=== PATIENT | female | born 1935 | race Caucasian/White ===

== ENCOUNTER 2018-10-02 13:02 | Inpatient (IN) | payer MEDICARE, MEDICAID ==
[~2018-10-02] VITALS: Ht 134.6 cm; Wt 62.3 kg
--- NOTE | ~2018-10-02 | DS ---
[place], [place] DISCHARGE SUMMARY [id number] #: [id number] ROOM: 310 DOCTOR: DARVIN MELARA MD BIRTHDATE: [birth year] DOS: 10/13/2018 CHIEF COMPLAINT: "Oh I do not think I slept well at all last night." HISTORY OF PRESENT ILLNESS: This is an 83-year-old white female known to me from her stay at [facility]. The patient has become increasingly agitated and aggressive while at [facility]. She has been very paranoid and believes that people are talking about her and plotting against her. She has been physically aggressive when staff tried to redirect her. This behavior is in vidales contrast to her normal behavior. Normally, she has been very compliant and pleasant, but now she is putting herself and others at significant risk of harm. She is admitted now to rule out organic factors, to stabilize on medication, to engage in individual and samson milieu activity, returning back to [facility] when psychiatrically stable. SUMMARY OF THE VISIT: The patient was admitted to the unit where her Effexor was tapered and discontinued and Remeron was maintained moving it from 7.5 to 15 mg at bedtime to be more effective as an antidepressant. Her Depakote was maintained initially at 250 mg 3 times daily; however, she was low therapeutic at 52.4, so the dose was increased to 500 mg 3 times a day. Serum ammonia level upon admission was mildly elevated at 40, so lactulose 20 grams b.i.d. was started to lower the ammonia level. I did initially add Abilify; however, this did not seem to be very effective, so the Abilify was ultimately discontinued in lieu of Seroquel. The dose was increased and then subsequently decreased and stabilized at 25 mg twice daily given in later day dosing pattern. The patient did continue to have periods of excessive and inappropriate emotionality and was diagnosed then with pseudobulbar affect and Nuedexta 20-10 was started first at 1 tablet a day and then very quickly to 1 tablet every 12 hours with excellent results. As the patient improved, she returned back to her baseline. She was bright, pleasant and cheerful. She was very engaging in conversation. She was no longer verbally or physically aggressive. She tolerated the medication regimen well and there was no sedation, somnolence, extrapyramidal symptoms or tardive dyskinesia. The patient was well enough to return back to [facility]. MENTAL STATUS AT DISCHARGE: The patient is alert and oriented to person, place, but not necessarily time. Mood is strongly trending towards euthymia. Affect is much more appropriate. There was no hypomania or jayda. There were no gross psychotic symptoms. Short-term memory had gaps, otherwise she was intact. FINAL DIAGNOSES: Intermittent explosive disorder; major depression, recurrent; Alzheimer's dementia and pseudobulbar affect. DISPOSITION: All of her prescriptions have been printed and will be sent with her. At the time of discharge, she was psychiatrically stable. There were no acute medical issues. I will be the treating psychiatrist upon her readmission to the [facility]. [place], [place] DISCHARGE SUMMARY NAME: MICHAEL BERKOWITZ UNIT #: [id number] ROOM: 310 DOCTOR: DARVIN MELARA MD BIRTHDATE: [birth year] DARVIN MELARA MD CM:DISCHARG [id number] DARVIN MELARA MD 10/13/18 113 interface
--- NOTE | ~2018-10-02 | PR ---
[place], [place] PROGRESS NOTE NAME: MICHAEL BERKOWITZ UNIT #: [id number] ROOM: 310 DOCTOR: DARVIN MELARA MD BIRTHDATE: [birth year] DOS: 10/06/2018 CHIEF COMPLAINT: "Good morning." SUMMARY OF THE VISIT: The patient was interviewed as she was resting in a Dalia chair. She awoke with some prompting, said good morning and closed her eyes again. Nurses report that she had a good morning for the most part. She did sundown horribly again last evening and began to be exit seeking and un-redirectable. She ultimately required p.r.n. intervention with good results without side effects. MENTAL STATUS: She is alert and oriented to person, possibly place, although doubtful, not to time. Mood this morning is fairly euthymic. There is no anxiety or agitation noted. There is sedation and somnolence noted. Memory remains very poor. PLAN: At this point, given the amount of mood lability that she is experiencing, I will discontinue the Abilify due to ineffectiveness and start Seroquel 25 mg 3 times a day. We will support and monitor, engage in individual and samson milieu activity, returning to the least restrictive environment when psychiatrically stable. DARVIN MELARA MD CM:PNTRANS [id number] DARVIN MELARA MD 10/07/18 0420 interface
--- NOTE | ~2018-10-02 | PR ---
[place], [place] PROGRESS NOTE NAME: MICHAEL BERKOWITZ UNIT #: [id number] ROOM: 310 DOCTOR: DARVIN MELARA MD BIRTHDATE: [birth year] DOS: 10/04/2018 CHIEF COMPLAINT: "Oh, I will take some help getting up." SUMMARY OF THE VISIT: The patient was interviewed as she was resting quietly in bed. She engaged readily in conversation, reporting she would be fine if she got up and had breakfast. She was pleasant and cooperative, but confused. Nurses report that yesterday evening as afternoon turned into evening, she began to sundown horribly and became very agitated, exit seeking and combative. There was a great deal of paranoia and it was very hard to redirect her. She ultimately required p.r.n. intervention with excellent results without side effects. MENTAL STATUS: She is alert and oriented to person, possibly place, not to time. Mood this morning was fairly euthymic. Affect appropriate. Response is short and simple, at times inappropriate. There is no hypomania, jayda or psychosis this morning. PLAN: I will go ahead and increase and change the time of her Abilify moving the dose from 10 to 15 mg and giving it to her at 1700 hours to attempt to offset her sundowning. We will engage in individual and samson milieu activity, returning then to the least restrictive environment when psychiatrically stable. DARVIN MELARA MD CM:PNTRANS [phone] DARVIN MELARA MD 10/04/18 1406 interface
--- NOTE | ~2018-10-02 | PR ---
[place], [place] PROGRESS NOTE NAME: MICHAEL BERKOWITZ UNIT #: [id number] ROOM: 310 DOCTOR: DARVIN MELARA MD BIRTHDATE: [birth year] DOS: 10/12/2018 CHIEF COMPLAINT: "Oh good morning there, how are you today?" SUMMARY OF THE VISIT: The patient was interviewed in the dining area. She had already completed her breakfast. She was bright and alert and engaged readily in conversation. She carried on a reasonable conversation that was somewhat confused at times, but she also exhibited some spontaneity and actually engaged in conversation that was mutually beneficial. The patient did not exhibit any sedation or somnolence. There were no extrapyramidal symptoms or tardive dyskinesia. She was not yelling out. She was not exhibiting any mood lability. MENTAL STATUS: She is alert and oriented with time gaps. Mood does seem to be definitely trending towards euthymia. Affect is much more appropriate. There is no jayda, hypomania or psychosis. Short term memory is definitely impaired. PLAN: I will maintain her current psychotropic regimen given the benefit that we are now seeing. Continue to engage in individual and samson milieu activity, returning then to [facility] when psychiatrically stable. DARVIN MELARA MD CM:PNTRANS [id number] DARVIN MELARA MD 10/12/18 1347 interface
--- NOTE | ~2018-10-02 | PR ---
[place], [place] PROGRESS NOTE NAME: MICHAEL BERKOWITZ UNIT #: [id number] ROOM: 310 DOCTOR: DARVIN MELARA MD BIRTHDATE: [birth year] DOS: 10/08/2018 CHIEF COMPLAINT: "Morning." SUMMARY OF THE VISIT: The patient was interviewed as she was resting in bed. She was sleeping at first, but as I approached and called her name out loudly, she opened her eyes and voiced she did not want to be disturbed. She was quiet for the most part. Her oral mucosa looked extremely dry and nurses report she has not been eating or drinking now for several meals. She was not yelling out. She did yell out last evening and required p.r.n. intervention. MENTAL STATUS: It is limited due to her somnolence, but she was pleasant. There was no agitation or aggression. There was no hypomania, jayda or psychosis. PLAN: I will renew her p.r.n. Ativan should she require intervention. I will plan to increase her Nuedexta 20-10 to b.i.d. on 10/09/2018. I will check a CMP and CBC with diff to just screen medically. I defer to the hospitalist for further treatment. DARVIN MELARA MD CM:PNTRANS [id number] DARVIN MELARA MD 10/08/18 1427 interface
--- NOTE | ~2018-10-02 | WRIGHTHP ---
[place], [place] PATIENT HISTORY AND PHYSICAL EXAM NAME: MICHAEL BERKOWITZ UNIT #: [id number] ROOM: 310 DOCTOR: DARVIN MELARA MD BIRTHDATE: [birth year] DOS: 10/03/2018 CHIEF COMPLAINT: "Oh, I do not think I slept well at all last night." HISTORY OF PRESENT ILLNESS: This is an 83-year-old white female known to me from her stay of [facility]. The patient had been increasingly agitated and aggressive while at [facility]. She became increasingly paranoid, believing that people are talking about her and plotting against her. She has been physically aggressive at times with redirection. This behavior is in vidales contrast to her normal behavior. Attempts to adjust her medicines well at the long-term care facility have been unsuccessful and her behavior has spiraled out of control to the point where she is putting both herself and others at substantial risk of harm. She is admitted now to rule out organic factors to attempt to stabilize on medication, to engage in individual and samson milieu activities, returning to the least restrictive environment when psychiatrically stable. PAST MEDICAL HISTORY: Remarkable for hyperlipidemia, GERD, iron deficiency, diabetes and Alzheimer's dementia. SOCIAL HISTORY: The patient does not smoke cigarettes, use illicit drugs or drink alcohol. ALLERGIES: She lists allergies to PENICILLIN AND SULFA. STRENGTHS: Good verbal skills, supportive family. WEAKNESSES: Cognitive decline, poor coping skills. MENTAL STATUS: The patient is alert and oriented to person, possibly place, but not time. Mood this morning is somewhat depressed with anxious overtones. Nurses report the mood lability is quite prominent, especially in the evening hours. There is no overt auditory or visual hallucination. She was guarded and somewhat suspicious with me. Short term memory is poor and she processes information slowly. DIAGNOSES: Intermittent explosive disorder; major depression, recurrent and Alzheimer's dementia. DISPOSITION: At this point, I am going to simplify her regimen. I am going to discontinue her Effexor now after already discontinuing the Remeron. I do believe that there is more of a mood lability component here than there is depression. I will go ahead and maintain her Depakote at 250 mg 3 times daily. Her valproic acid level is low therapeutic at 52.4. Routine screening examinations revealed her to have a mildly elevated serum ammonia level of 40. I will order lactulose 20 grams b.i.d. For mood component stability, I will add Abilify 10 as this has enough antidepressant efficacy as well as mood stability properties to do both. I will maintain her Namenda and her Exelon patch. Engage in individual and samson milieu activity, returning then to the least restrictive environment when psychiatrically stable. [place], [place] PATIENT HISTORY AND PHYSICAL EXAM NAME: MICHAEL BERKOWITZ [place] UNIT #: [id number] ROOM: 310 DOCTOR: DARVIN MELARA MD BIRTHDATE: [birth year] DARVIN MELARA MD CM:HISPHYS:PATIENT HISTORY AND PHYSICAL EXAMINATION 3 7 DARVIN MELARA MD 10/03/18917 interface
--- NOTE | ~2018-10-02 | PR ---
[place], [place] PROGRESS NOTE NAME: MICHAEL BERKOWITZ UNIT #: [id number] ROOM: 310 DOCTOR: DARVIN MELARA MD BIRTHDATE: [birth year] DOS: 10/11/2018 INTERVAL NOTE CHIEF COMPLAINT: "Good morning." SUMMARY OF THE VISIT: The patient was interviewed as she was sitting in the dining area finishing her breakfast. She engaged readily in brief conversation, most of it short simple responses. She was not agitated, however, and was not yelling out, although nurses report, she continues to have episodes of extreme mood lability and yelling out, more redirectable, although of late. MENTAL STATUS: She is alert and oriented to self only. Mood does seem to be trending towards euthymia. Affect is more appropriate. There is no jayda or hypomania. No gross psychosis. Short-term memory remains problematic. PLAN: I will go ahead and increase her Depakote sprinkles to 500 mg 3 times daily attempting to bring the level between 60 and 80 to decrease her mood lability. Continue to engage in individual and samson milieu activities, returning to the least restrictive environment when psychiatrically stable. DARVIN MELARA MD CM:PNTRANS 1315 DARVIN MELARA MD 10/11/18 1316 interface
--- NOTE | ~2018-10-02 | PR ---
[place], [place] PROGRESS NOTE NAME: MICHAEL BERKOWITZ UNIT #: [id number] ROOM: 310 DOCTOR: DARVIN MELARA MD BIRTHDATE: [birth year] DOS: 10/07/2018 CHIEF COMPLAINT: The patient was somnolent. SUMMARY OF THE VISIT: The patient was attempted to be interviewed as she was resting in a Dalia chair in the dining area. She was very somnolent, this is because she was very agitated into the evening going into night and was yelling out "help me, help me" repeatedly. When staff did attempt to intervene to see what help she needed, she was not able to verbalize any needs. This seems to be more like a PDA variant. MENTAL STATUS: It was limited due to her overall level of somnolence. PLAN: I will add the diagnosis of pseudobulbar affect and start her on Nuedexta 20/10 one tablet daily to see if this will decrease some of the inappropriate excessive emotionality. We will monitor and support. DARVIN MELARA MD CM:PNTRANS [id number] DARVIN MELARA MD 10/07/18 1522 interface
--- NOTE | ~2018-10-02 | PR ---
[place], [place] PROGRESS NOTE NAME: MICHAEL BERKOWITZ UNIT #: [id number] ROOM: 310 DOCTOR: DARVIN MELARA MD BIRTHDATE: [birth year] DOS: 10/05/2018 INTERVAL NOTE CHIEF COMPLAINT: "I have had so many losses in my life." SUMMARY OF THE VISIT: The patient was interviewed as she was sitting in the dining area. She had already eaten her breakfast. She engaged readily in conversation and then initially talked about having many, many deaths in the family. She did almost well up with tears, but then quickly stated that this did not depress her because she just has to keep moving on. She did seem genuinely depressed and sad. MENTAL STATUS: She remains alert and oriented with significant time gaps. Nurses report, she does sundown frequently. She is alert and oriented to person, place, not time. Mood does seem to be very sad and depressed. Affect is flat, blunted, and constricted. There is no hypomania, jayda or psychosis. Short term memory is very poor. PLAN: I will go ahead and add Remeron 15 mg at bedtime. I may adjust the timing of the medicine to coincide when she sundowns so that we can head off some of her sundowning behavior. We will engage her in individual and samson milieu activity, returning to the least restrictive environment when psychiatrically stable. DARVIN MELARA MD CM:PNTRANS [phone] DARVIN MELARA MD 10/05/18 1025 interface
[~2018-10-02 13:02] MED LIST: MACRODANTIN100 M1 PO
[2018-10-02] MEDS ORDERED: EFFEXOR XR150 M1 PO (17:20)
[2018-10-02] MEDS ORDERED: PERCOCET 5-3251 EACH PO (17:22)
[2018-10-02] MEDS ORDERED: TYLENOL325 M2 PO (17:23)
[2018-10-02] MEDS ORDERED: LIPITOR10 MG PO (17:24)
[2018-10-02] MEDS ORDERED: DEPAKOTE SPRIN125 MG PO (17:27)
[2018-10-02] MEDS ORDERED: CRANBERRY450 M3 PO (17:27)
[2018-10-02] MEDS ORDERED: EXELON13.3 MG/21 TD (17:36)
[2018-10-02] MEDS ORDERED: DOCUSATE SODIU100 M2 PO (17:36)
[2018-10-02] MEDS ORDERED: ADULT TUSS100 MG/5 M PO (17:37)
[2018-10-02] MEDS ORDERED: FERROUS SULFAT324 M2 PO (17:39)
[2018-10-02] MEDS ORDERED: LEVEMIR100 UNIT/1 SQ (17:40)
[2018-10-02] MEDS ORDERED: METOPROLOL TAR100 M1 PO (17:41)
[2018-10-02] MEDS ORDERED: REMERON15 M2 PO (17:43)
[2018-10-02] MEDS ORDERED: MULTIPLE VITAM1 EAC1 PO (17:47)
[2018-10-02] MEDS ORDERED: NAMENDA10 MG PO (17:48)
[2018-10-02] MEDS ORDERED: NYSTATIN CREAM15 GM T (18:12)
[2018-10-02] MEDS ORDERED: OMEPRAZOLE D/R20 MG PO (18:13)
[2018-10-02] MEDS ORDERED: TRAD5TAB1 PO (18:14)
[2018-10-02] MEDS ORDERED: SENNA8.6 MG PO (18:14)
[2018-10-02] MEDS ORDERED: UTI-STAT L3875 MG/30 PO (18:17)
[2018-10-02] MEDS ORDERED: VESICARE5 MG PO (18:19)
[2018-10-02] MEDS ORDERED: VITAMIN D350000 UNIT PO (18:20)
[2018-10-02 20:00] VITALS: BP 156/69
--- NOTE | 2018-10-02 20:00 | NUR ---
MICHAEL BERKOWITZ a 83 year old F admitted via wheel chair from the ADMITTING as a voluntary admission. Arrived on unit at 1999. ALLERGIES: PCN AND SULFA. Vital signs are: [id number] 156/69. The client's POA gave verbal consent for the following forms with stated understanding: Authorization For The Release of Medical Information, Clothing List, Consent to Voluntary Admission and Hospitalization, Consent and Release Forms/Receipt of Rights, Acknowledgement of Advance Directive Information, Behavioral Health Consent Form, and Informed Consent of Medications. Admitted under the services of Dr. KELTON HENRY,[facility]. A search was conducted and hazardous articles were removed. Client was oriented to the unit. GERI ZAMORA
--- NOTE | 2018-10-02 20:10 | NUR ---
MESSAGE LEFT ON OLIVING MACHINE OPERATOR PHONE WITH UPDATE OF TIME OF ADMISSION AND AWARE PATIENT IS VOLUNTARY BY POA
--- NOTE | 2018-10-02 21:45 | NUR ---
Called and notified Aminata Agrawal,nursing porcelain enameling supervisor,regarding patient's wound on lt buttock that needs staged. She said she would come soon.
--- NOTE | 2018-10-02 21:50 | NUR ---
Dr. Burnett came to see patient and notified him that patient has wounds on rt arm and lt buttock. He said he would put in wound care orders.
--- NOTE | 2018-10-02 22:00 | NUR ---
Aminata Agrawal,nursing pit supervisor came and staged wound on lt buttock.
--- NOTE | 2018-10-02 23:45 | NUR ---
Still awaiting wound care orders from Dr. Burnett.
--- NOTE | 2018-10-03 01:18 | NUR ---
24 HR chart check completed.
--- NOTE | 2018-10-03 05:57 | NUR ---
Patient slept approx. 7 hours throughout shift.
[2018-10-03 06:45] LABS: ALBUMIN 2.7 gm/dl (3.1-4.5); ALKALINE PHOSPHATASE 79 U/L (45-117); BUN 37 mg/dl (7-24); CHLORIDE 105 mmol/L (98-107); CHOLESTEROL 125 mg/dL (<200); CREATININE 1.05 mg/dL (0.55-1.02); HDL CHOLESTEROL 38 mg/dl (40-60); LDL CHOLESTEROL 60 mg/dL (9-159); POTASSIUM 3.8 mmol/L (3.5-5.1); SGOT/AST 31 IU/L (3-35); SGPT/ALT 22 U/L (12-78); SODIUM 142 mmol/L (136-145); TOTAL PROTEIN 6.3 gm/dL (6.4-8.2); TRIGLYCERIDES 136 mg/dl (<150); VLDL CHOLESTEROL 27 mg/dL (6-40)
[2018-10-03 06:54] LABS: HEMOGLOBIN 11.2 g/dl (12.0-16.0); MEAN CELL VOLUME 90.4 fl (81.0-99.0); MEAN CORPUSCULAR HGB 28.9 pg (27.0-31.0); MEAN PLATELET VOLUME 10.6 fl (9.6-12.3); PLATELET COUNT AUTOMATED 177 10*3/uL (130-400); RED BLOOD COUNT 3.87 10*6/uL (4.10-5.10); RED CELL DISTRI WIDTH 23.8 % (0-14.5); WHITE BLOOD COUNT 9.2 10*3/uL (4.8-10.8)
[2018-10-03 06:56] LABS: VALPROIC ACID (DEPAKENE) 52.4 ug/ml (50-100)
[2018-10-03 07:22] VITALS: BP 132/84
[2018-10-03 07:40] LABS: VITAMIN D, 25-HYDROXY 79.1 ng/mL (30-100)
[2018-10-03 07:44] LABS: BASOPHILS 2 % (0-1); PLATELET SUFFICIENCY NORMAL (NORMAL); TOTAL CELLS COUNTED 100 #CELLS
--- NOTE | 2018-10-03 12:59 | NUR ---
ON UNIT TO SEE PT AT THIS TIME, AWARE PT CURRENTLY BEING TREATED FOR MACROBID FOR UTI. STATES TO CANCEL REPEAT URINALYSIS.
--- NOTE | 2018-10-03 16:18 | NUR ---
PM GROUP/LEISURE SKILLS PT IN AND OUT OF ACTIVITIES BUT DID NOT REMAIN FOR MORE THAN 5 MINUTES. PT STATES "MY WHEELCHAIR JUST ISN'T WORKING RIGHT" THEN EXITED AND NEVER RETURNED. PT DID NOT BECOME AGGRESSIVE OR PARANOID AT THIS TIME, PT ALSO STATES "I'M TIRED I HAVEN'T HAD MUCH REST LATELY". PT WILL CONTINUE TO BE ENCOURAGED TO ATTEND AND PARTICIPATE IN GROUP SESSIONS TO BEST OF ABILITY.
--- NOTE | 2018-10-03 16:34 | NUR ---
P-CONFUSION, ST/LT MEMORY DEFICITS I-ORIENTATION, MOOD AND BEHAVIOR ASSESSED. ASSESSED FOR SI/BI, INTENT OR PLAN. ASSESSED FOR S/S OF HALLUCINATIONS AND/OR DELUSIONS. MEDICATIONS ADMINISTERED PER PHYSICIAN'S ORDERS. ENCOURAGED PT TO PARTICIPATE IN GROUPS AND ACTIVITES. R-ALERT AND ORIENTED TO PERSON ONLY. CONFUSION NOTED IN ALL OTHER AREAS. MEMORY RECALL POOR. PT RECEPTIVE TO ORIENTATION. REORIENTATION ONLY EFFECTIVE FOR SHORT PERIODS. PT REQUIRES FREQUENT REDIRECTION SHE ROAMS THE HALLS IN W/C IN AND OUT OF ROOMS. UPON REDIRECTION, PT STATES, "DON'T WORRY ABOUT IT, YOU GO THAT WAY." DENIES SI/HI, INTENT AND PLAN. NO S/S OF HALLUCINATIONS AND/OR DELUSIONS NOTED. MEDICATION COMPLIANT WITHOUT DIFFICULTY. INTERACTIVE WITH STAFF AND PEERS. ATTENDED AND PARTICIPATED IN GROUP. P-CONTINUE CURRENT TREATMENT. CONTINUE TO MONITOR MOODS AND BEHAVIORS. PROVIDE APPROPRIATE ORIENTATION, REDIRECTION AND 1-1 NEEDED. CONTINUE TO ENCOURAGE MEDICATION COMPLIANCE WELL GROUP ATTENDANCE AND PARTICIPATION.
--- NOTE | 2018-10-03 17:44 | NUR ---
SHIFT CHART CHECK COMPLETED.
--- NOTE | 2018-10-03 18:57 | NUR ---
PT SUNDOWNING AT THIS TIME. PROPELLING SELF UP AND DOWN HALLWAY VOICING PARANOID DELUSIONS AND CURSING. DISRUPTIVE TO BRAY MILIEU. MADE AWARE, STATES OK TO GIVEN HS ABILIFY AND DEPAKOTE EARLY. VO'S CARRIED OUT AT THIS TIME.
--- NOTE | 2018-10-03 19:48 | NUR ---
PSA completed with collateral information from [employer].
[2018-10-03 19:49] VITALS: BP 123/67
--- NOTE | 2018-10-03 22:28 | NUR ---
24 HR chart check completed.
--- NOTE | 2018-10-03 23:02 | NUR ---
P-CONFUSION, IRRITABLITY, EXIT SEEKING I-PROVIDE EMOTIONAL SUPPORT, REORIENT, REDIRECT, PRESENT REALITY, INITIATE ELOPEMENT PRECAUTIONS, ADMINISTER MEDICATIONS, MONITOR SLEEP. R-ALERT TO PERSON ONLY.UNRECEPTIVE TO REORIENTATION, STATED THAT SHE IS AT A [facility] IN [facility] [place]. THE YEAR IS 1968 & THE PRESIDENT IS PRESIDENT TEMI. HAS ATTEMPTED TO EXIT SEEK & WAS POUNDING ON THE BACK EXIT DOOR & CURSING. REQUIRED REDIRECTION SEVERAL TIMES. ELOPEMENT PRECAUTIONS INITAITED. WAS COMPLIANT TAKING HS MEDS WHOLE. WHILE WAITING FOR MEDS PT STATED, "DO YOU WANT TO SEE MY TIT"? IMMEDIATLY LIFTED UP HER SHIRT & EXPOSED HER LEFT BREAST. NOTED TO HAVE A PLASTIC 4 OZ CUP COVERING HER NIPPLE & BREAST. THIS WAS REMOVED. WHEN PT WAS ASKED, WHY DID YOU PUT THAT THERE, SHE STATED, "WHY NOT? IT HAD TO GO SOMEWHERE". INFORMED PT THAT THIS WAS INAPPRORIATE & SHE STATED. "OH WELL". HAS REPEATEDLY STATED THAT SHE IS LOOKING FOR DAUGHTER GEN & TO OPEN THE DOOR BECAUSE HER DAUGHTER WAS STANDING BEHIND IT. MOVES ABOUT THE UNIT VIA WHEELCHAIR. HS BEDSIDE GLUCOSE WAS 259. P-CONTINUE TO PROVIDE PHYSICAL ASSISTANCE & EMOTIONAL SUPPORT NEEDED. MONITOR EXIT SEEKING BEHAVIOR,
--- NOTE | 2018-10-04 02:11 | NUR ---
PT WAS AWAKE AT THIS TIME & WAS ASSISTED TO THE BATHROOM. CONTINENT OF URINE. VERY ANXIOUS AT THIS TIME. TALKING ABOUT GETTING TO THE DOOR. CURSING & UPSET AT THIS TIME. CONTINUED TO VOICE PARANOID STATEMENTS REGARDING THE DOOR & HER DAUGHTER GEN. FREQUENTLY SCANNING THE LAYNE & SHAKING. STATED "LOGANS BEHIND THAT DOOR. HES COMING BACK. DONT LET HIM IN. WE SEEN EACH OTHER FOR ABOUT 5 DAYS & THEN HE TOOK OFF. GEN SHOULD BE HERE SOON. WE ARE GONNA HAVE A BIRTHDAY [employer] PART[employer]." VERBAL INTERVENTION ATTEMPTED. PUSHED PT IN A WHEEL CHAIR TOWARDS THE EXIT DOOR TO TRY TO PRESENT REALITY. INEFFECTIVE. PT TEARFUL. FLIGHT OF IDEAS. CIRCUMSTANTIAL SPEECH. PT STATED THAT SHE JUST GRADUATED FROM [employer] 2-3 WEEKS AGO. MEDICATED WITH ATIVAN 1 MG PO @ 0203. PRESENTLY SITTING IN FRONT OF THE NURSES STATION TALKING TO NURSES & TO PROVIDE SAFETY & REASSURANCE.
--- NOTE | 2018-10-04 04:05 | NUR ---
ATIVAN EFFECTIVE & PT RETURNED TO SLEEP @ 0330
--- NOTE | 2018-10-04 06:17 | NUR ---
MICHAEL BERKOWITZ [id number] Please refer to the physician's history and physical for past medical history, comorbid conditions, and allergies. Diagnosis: MAJOR DEPRESSION RECURRENT Cameron Score: 16,AT RISK WOUND DESCRIPTIONS: Location of the wound: Right arm Type of wound: skin tear Thickness: Partial Size: 2.2cm x 2.6cm x 0.1cm Tunneling: none Undermining: none Sinus Tract: none Presence of Exudate: Serosanguineous Amount: Light Color: Red Odor: None Periwound Skin Appearance: ecchymotic Wound edges: approximated Pain (associated with wound): none at time of assessment How does patient state this happened? pt unable to state how this happened Location of the wound: right arm underside Type of wound: skin tear Thickness: Partial Size: 0.2cm x 0.4cm x 0.1cm Tunneling: none Undermining: none Sinus Tract: none Presence of Exudate: Serosanguineous Amount: Light Color: Red Odor: None Periwound Skin Appearance: ecchymotic Wound edges: approximated Pain (associated with wound): none at time of assessment How does patient state this happened? pt unable to state how this happened Location of the wound: left buttocks Type of wound: stage 3 Thickness: Full Size: 2.7cm x 3.2cm x 0.1cm Tunneling: none Undermining: none Sinus Tract: none Presence of Exudate: Serosanguineous Amount: Light Color: Yellow, red Odor: Foul Periwound Skin Appearance: Scar Wound edges: approximated Pain (associated with wound): none at time of assessment How does patient state this happened? pt unable to state how this happened Bilateral heels are red and blanchable at time of assessment. No open areas noted at this time. No drainage noted at this time. Patient has multiple ecchymotic areas noted to BUE. Green gerisleeves intact at time of assessment. Surface the patient is resting on: Proform SKIN PREVENTION RECOMMENDATION: 1. Pressure redistribution support surface as appropriate 2. Elevate heels 3. Remove boots/TEDS every shift and reapply 4. Head of bed 30 degrees as tolerated 5. Assess nutrition and hydration 6. Manage moisture 7. Avoid the use of containment devices while in bed 8. Use absorptive products on surfaces limit layers of linens on bed 9. Turn and reposition every 1-2 hours in bed and every 1 hour in chair as tolerated 10. Weight shifts every 15 minutes while up in chair 11. Offloading with pillows or device to keep heels elevated off bed 12. Monitor skin at least every shift 13. Inspect under medical devices twice a day WOUND TREATMENT RECOMMENDATIONS: Consult Lucila Rivera CAM MAKER- for possible debridement of left buttocks wound. Stage 3 guidelines: Cleanse left buttocks with nss and apply sureprep around the wound therahoney to wound bed and cover with optifoam gentle. Skin tear guidelines: Cleanse right arm and right arm underside with nss and apply sureprep around the wound therahoney to wound bed and cover with optifoam gentle. Wheelchair cushion when oob. Heel raiser pro boots while in bed. D/C unstageable guidelines. D/C skin tear guidelines.
--- NOTE | 2018-10-04 06:32 | NUR ---
AM BEDSIDE GLUCOSE 174
[2018-10-04 07:12] VITALS: BP 142/56
--- NOTE | 2018-10-04 08:13 | NUR ---
PHYSICAL THERAPY Nursing screen received. PT orders also received. Thank you. Soheila Pyle,PT
--- NOTE | 2018-10-04 08:28 | NUR ---
Nursing screen and Occupational Therapy referral received. Thank you. Ancelmo Eduardo OTr/L
--- NOTE | 2018-10-04 09:20 | NUR ---
Dr. Alex notified of wound care recommendations.
--- NOTE | 2018-10-04 10:30 | NUR ---
SPOKE WITH ANA AT [facility]. NOTIFIED OF PLANS TO DISCHARGE NEXT WEEK. PT. IS LTC AT FACILITY AND A BED HOLD. PT. WILL RETURN TO FACILITY AT DISCHARGE AND DOES NOT REQUIRE A PRECERT PRIOR TO RETURN TO FACILITY.
--- NOTE | 2018-10-04 10:41 | NUR ---
DR. CANAS ON UNIT TO ASSESS PATIENT.
--- NOTE | 2018-10-04 11:37 | NUR ---
PHYSICAL THERAPY PAtient Evaluated on 3, full evaluation to follow. Continu wth PT as per plan of care with fall, alarms, unit three and mod (A) precautions. Return to LTC as prior with PT prn to return to prior level of function. PAtient is high complexity via chart review, tests and evaluation: [id number]. thank you for this referral. Soheila Pyle,PT
--- NOTE | 2018-10-04 11:43 | NUR ---
AM GROUP/PARACHUTE/FOCUS PT ATTENDED FIRST HALF OF GROUP AND PARTICIPATED IN EXERCISES AND PARCHUTE ACTIVITY. PT LEFT ROOM AFTER PARACHUTE ACTIVITY AND DID NOT RETURN. PT DID NOT BECOME AGGRESSIVE OR PARANOID AT THIS TIME. PT WILL CONTINUE TO BE ENCOURAGED TO ATTEND AND PARTICIPATE DURING GROUP.
--- NOTE | 2018-10-04 12:50 | NUR ---
CALLED REQUESTING TO SPEAK TO THIS NURSE REGARDING WOUNDS CARE NURSE REQUESTING PT TO HAVE DEBRIDEMENT ON THE UNIT. ADVISED THAT THIS PROCEDURE IS ALLOWED ON THE UNIT AND ALL INSTRUMENTS MUST ACCOUNTED FOR UPON ARRIVAL ON UNIT AND EXIT TO THE UNIT. PER DR. COLEMAN THEY MAY DO SO TODAY.
--- NOTE | 2018-10-04 13:55 | NUR ---
MARLENY HAZEL, BROKER ASSISTANT ON TO ASSESS PATIENT'S WOUND ON BUTTOCK.
--- NOTE | 2018-10-04 14:30 | NUR ---
Collaborated with tx team regarding pt progress and plan. Pt still engaging in attempts to elope and appearing very confused but remains calm and content.
--- NOTE | 2018-10-04 14:48 | NUR ---
PATIENT IS ALERT AND ORIENTED TO PERSON AND SITUATION WITH CONFUSION; ABLE TO VOICE NEEDS. LONG/SHORT TERM MEMORY DEFICITS NOTED. MOOD IS ANXIOUS. DENIES ANY HALLUCINATIONS, DELUSIONS, HI/SI OR PAIN. PATIENT RESPONDING TO INTERNAL STIMULI, STATING "I NEED TO GO TO THE LOBBY TO BE PICKED UP FOR SCHOOL" AND ATTEMPTING TO EXIT SEEK, GOING TO THE EXIT DOORS, PRESSING ON [address] PAD. PATIENT REDIRECTED AND EFFECTIVE. MEDICATION COMPLAINT. Q 15 MINUTE SAFETY CHECKS. 1 PERSON ASSIST WITH ACTIVITIES OF DAILY LIVING, CONTINENT OF BOWEL AND BLADDER. SET UP FOR MEALS, INTAKES VARY. PATIENT SLEPT THROUGH BREAKFAST. UP IN WHEELCHAIR; SELF PROPELS, UP AND DOWN HALLWAY WITH REDIRECTION PROVIDED WHEN EXIT SEEKING. PATIENT PREOCCUPIED WITH WANTING TO GO TO DAUGHTER'S HOUSE. REORIENTED PATIENT TO PLACE AND EFFECTIVE. PATIENT IS INTERACTIVE WITH STAFF AND PARTICIPATED IN MORNING GROUP. CONTINUE TO MONITOR VOICED PARANOID STATEMENTD AND AGGRESSION; PROVIDE ONE ON ONE AND REDIRECTION NEEDED.
--- NOTE | 2018-10-04 15:50 | NUR ---
PM GROUP/LEISURE SKILLS PT ATTENDED AND PARTICIPATED IN THE FIRST PART OF GROUP. PT LEFT AND DID NOT RETURN THE SECOND HALF. PT DID NOT BECOME AGGRESSIVE OR PARANOID AT THIS TIME. PT WILL CONTINUE TO ATTEND AND PARTICIPATE IN FUTURE GROUP SESSIONS.
--- NOTE | 2018-10-04 17:26 | NUR ---
Shift chart check completed.
--- NOTE | 2018-10-04 18:40 | NUR ---
ROLF RETURNED CALL REGARDING DEBRIDEMENT. STATES HE CONSENTS TO PROCEDURE AND WILL CALL BACK IN THE MORNING TO SPEAK WITH MARLENY HAZEL CNP TO GIVE HER CONSENT. WITNESSED BY SECOND RN.
--- NOTE | 2018-10-04 18:52 | NUR ---
P - PT BEGAN TO GET AGITATED, YELLING PARANOID DELUSIONS ABOUT THE "SONS OF BITCHES" THAT SHE "HATES". PT STATING THAT PEOPLE ARE EVERYWHERE. PT STATING THAT SHE DOESN'T HAVE A BED, BEGAN TO GET TEARFUL. I - PT REDIRECTED, SHOWN HER BED, SHOWN THE OTHER PTS ON THE UNIT. REORIENTED, PROVIDED WITH 1:1 AND LOW STIMULATION R - PT REMAINS TEARFUL STATING "YOU MIGHT HELP ME, BUT NOBODY WANTS TO HELP ME ANYMORE AND GEN IS SO FAR AWAY AT THE OTHER DOCTORS". PT CALMED AT THIS TIME, SITTING IN HALLWAY ACROSS FROM NURSES STATION. NO FURTHER AGITATION OR DELUSIONS VOICED. P - CONTINUE TO PROVIDE SELF AND REDIRECTION NEEDED. CONTINUE TO REORIENT NEEDED. PROVIDE EMOTIONAL SUPPORT NEEDED. ENCOURAGE PARTICIPATION IN GROUP THERAPY/ACTIVITY. ENCOURAGE CONTINUED MEDICATION COMPLIANCE.
[2018-10-04 20:00] VITALS: BP 142/76
--- NOTE | 2018-10-04 21:22 | NUR ---
24 HR chart check completed.
--- NOTE | 2018-10-04 21:53 | NUR ---
P-CONFUSION,PARANOID DELUSIONS, VISUAL HALLUCINATIONS, EXOT SEEKING I-PROVIDE EMOTIONAL SUPPORT & REASSURANCE OF SAFETY, REORIENT, REDIRECT, PRESENT REALITY, MAINTAIN ELOPEMENT PRECAUTIONS, ADMINISTER MEDICATIONS, MONITOR SLEEP. R-ALERT TO PERSON ONLY, UNRECEPTIVE TO REORIENTATION, STATED THAT SHE IS AT [place]. HAS MADE NO ATTEMPTS TO EXIT SEEK. MOVES ABOUT THE UNIT VIA WHEEL CHAIR WITH 1 STAFF ASSIST TO GO TO BATHROOM OR GET IN BED. PT IS CALMER. NO CURSING. PLEASANTLY CONFUSED. WAS ASSISTED TO BED & APPROX 5 MINUTES LATER ASSISTED OUT OF BED. SHE VOICED PARANOID STATEMENTS & VISUAL HALLUCINATIONS. STATED THAT SHE SEEN A MARIA G HAND ON THE DOOR FRAME & HE WAS COMING INTO HER ROOM TO GET HER. INFORMED STAFF THAT SHE WANTED SOMEONE TO BE WITH HER & NOT LEAVE HER. PT WAS ASSISTED BACK TO THE DINING ROOM. ANXIETY NOTED TO INCREASE. MEDICATED WITH ATIVAN 1 MG PO @ 2130 & SAT WITH STAFF IN THE DINING ROOM. ATE HS SNACK. COMPLIANT TAKING HS MEDICATIONS. P-CONTINUE TO PROVIDE PHYSICAL ASSISTANCE & EMOTIONAL SUPPORT NEEDED. MONITOR EFFECTIVENESS OF ATIVAN.
--- NOTE | 2018-10-05 06:02 | NUR ---
ATIVAN HAS BEEN EFFECTIVE & PT HAS SLEPT QUIETLY PAST 2244.
--- NOTE | 2018-10-05 06:45 | NUR ---
AM BEDSIDE GLUCOSE 95
--- NOTE | 2018-10-05 07:10 | NUR ---
PHYSICAL THERAPY Patient seen this am for therapy visit and was sitting in activity room w/c upon therapist arrival. U staff member was present for observation only this morning throughout entire BILLET INSPECTOR treatment. Patient needed multiple v/c's to complete all therapy task due to decreased focus on task. Patient performed seated B LE therex, all planes, x 10 reps each without c/o, followed by several sit to stand transfers at rail in hallway, Min A. Patient ambulated ACCOUNTS PAYABLE SUPERVISOR/Min, 25' x 1, demonstrating increased velocity and impulsive behaviour at times which promotes increased risk of falling. Patient returned to w/c in activty room and remained with body alarm, under [facility] staff Supervision, Will continue per POC as tolerated, total treatment time 18 minutes. Omkar Latif, BILLET INSPECTOR
[2018-10-05 07:38] VITALS: BP 142/72
--- NOTE | 2018-10-05 07:43 | NUR ---
Recommend follow up for wound care in outpatient setting patient being discharge to another facility at this time.
--- NOTE | 2018-10-05 08:15 | NUR ---
Treatment Plan meeting with Dr. Huffman, RN, AT, SW and Food And Nutrition Teacher. Plan for discharge next week. Pt. LTC at [facility] and will return at discharge.
--- NOTE | 2018-10-05 11:39 | NUR ---
AM GROUP/EXERCISE AND BALL TOSS PT CHOSE NOT TO ATTEND GROUP BUT WAS LATER ENCOURAGED TO ATTEND BY MILIEU. PT PARTICIPATED IN THE END OF EXERCISE AND IN THE BALL TOSS. PT BEGAN TO LEAVE THE ROOM WHEN GROUP DISCUSSION BEGAN AND INSISTED ON LEAVING. IT SEEMS THAT PT IS INTERESTED IN PHYSICAL ACTIVITY BUT NOT COGNITIVE ACTIVITY. PT LEFT THE ROOM AND DID NOT RETURN.
--- NOTE | 2018-10-05 13:34 | NUR ---
PATIENT IN WHEELCHAIR SELF PROPELLING IN HALLWAY. PATIENT OBSERVED BY MILIEU WHILE ASSISTING ANOTHER PATIENT, LEANING OVER IN WHEELCHAIR AND FALL ON FLOOR. PATIENT HAS RAISED AREA ON LEFT SIDE OF FOREHEAD. PATIENT ABLE TO MOVE ALL EXTREMITIES, NO COMPLAINTS OF PAIN. PATIENT ASSISTED TO WHEELCHAIR. VITALS: 97.0, 118/86, 84, 22, 97% RA. DR. SULLIVAN NOTIFIED. NEW ORDERS RECEIVED. SHOP CLERK AND NURSE CAMPGROUND CARETAKER NOTIFIED. CALL PLACED TO [facility] TO RETURN CALL.
--- NOTE | 2018-10-05 13:54 | NUR ---
DR. SULLIVAN ON UNIT TO ASSESS PATIENT.
--- NOTE | 2018-10-05 15:16 | NUR ---
Patient had a fall out of w/c on 3N this pm per nursing and is waiting for a CT scan. OTR to attempt evaluation at a later date. Shayla Eduardo OTR/l
--- NOTE | 2018-10-05 15:30 | NUR ---
PATIENT COMPLAINED OF HAVING A HEADACHE. PRN TYLENOL 650MG PO GIVEN AT THIS TIME.
--- NOTE | 2018-10-05 15:36 | NUR ---
PM GROUP/ART AND MEDITATION MUSIC PT WAS LATE TO GROUP SHE HAD A FALL. PT WAS BROUGHT INTO THE DAY ROOM RECLINED IN A SHERRY CHAIR WITH A LARGE LUMP ON HER FOREHEAD. PT DID NOT PARTICIPATE IN GROUP AND WAS ADVISED TO TRY TO RELAX. PT WAS HEARD BY THIS ENVIRONMENTAL LABORATORY TECHNICIAN PRAYING, "PLEASE GOD, GET ME OUT OF HERE" PT COMPLAINED OF HEAD PAIN AND NURSE WAS NOTIFIED. PT IS UNABLE AT THIS TIME TO PARTICIPATE IN GROUP ACTIVITIES DUE TO HIGH LEVEL OF CONFUSION.
--- NOTE | 2018-10-05 16:30 | NUR ---
ASKED PATIENT IF HEAD HURT. PATIENT STATED "NO MORE PAIN" PRN TYLENOL EFFECTIVE.
--- NOTE | 2018-10-05 18:04 | NUR ---
PT INCREASINGLY AGITATED, STRIKING OUT AT STAFF, YELLING OUT, POUNDING ON TABLE, EXIT SEEKING, POUNDING ON DOOR 1:1 PROVIDED, PT REDIRECTED, TOILETED, OFFERED FOOD/FLUIDS, DIVERSION ACTIVITITES SUCH COLORING AND TV. ALL INTERVENTIONS INEFEFCTIVE PT BEHAVIORS CONTINUE. PT MEDICATED WITH IM ATIVAN PER ORDERS. WILL CONTINUE TO MONITOR.
--- NOTE | 2018-10-05 18:48 | NUR ---
PATIENT NO LONGER STRIKING/YELLING OUT, ATTEMPTING TO GET OUT OF CHAIR UNASSISTED. CALM DEMEANOR. STAFF PROVIDED ONE ON ONE, REDIRECTION AND WALKED WITH PATIEN, WHILE PATIENT UP IN GERICHAIR. PRN ATIVAN EFFECTIVE.
[2018-10-05 20:00] VITALS: BP 145/59
--- NOTE | 2018-10-05 21:58 | NUR ---
24 HR chart check completed.
--- NOTE | 2018-10-05 22:31 | NUR ---
IM ATIVAN GIVEN ON DAYLIGHT SHIFT HAS BEEN EFFECTIVE & PT HAS RESTED QUIETLY IN A SHERRY CHAIR IN THE DINING ROOM SLEEPING INTERMITTENTLY. ATE HS SNACK. COMPLIANT TAKING HS MEDICATIONS. DID HAVE ONE SMALL LIQUID EMESIS AFTER TAKING MEDICATIONS. NO AGITATION OR DELUSIONS DUE TO DROWSINESS. 1 STAFF ASSIST TO BATHROOM & BED. CONTINENT OF URINE.
--- NOTE | 2018-10-06 03:19 | NUR ---
PT HAS HAD 3 SMALL LOOSE BM'S IN THE PAST 45 MIN. BED LINENS CHANGED X3. PT STATED "JUST PUT A DIAPER ON ME". DIAPER APPLIED PER PTS REQUEST.
--- NOTE | 2018-10-06 04:23 | NUR ---
DR CRISTINE JANE NOTIFIED OF PT HAVING 5 VERY LOOSE BOWEL MOVEMENTS IN THE PAST HOUR WITH ORDERS RECEIVED TO HOLD COLACE & SENOKOT.
--- NOTE | 2018-10-06 05:08 | NUR ---
PT MEDICATED WITH IMODIUM 2MG PO @ [address] CRISTINE BETH ORDER.
--- NOTE | 2018-10-06 06:38 | NUR ---
AM BEDSIDE GLUCOSE 200
--- NOTE | 2018-10-06 07:10 | NUR ---
PHYSICAL THERAPY Patient seen this am for therapy visit and was supine in bed upon therapist arrival. U staff member and nurse were both present for entire ECONOMICS ANALYST visit this morning as patient transfers supine to sit Mod A and sit to stand Min/Mod. Patient ambulates CARDIOVASCULAR RN/Min, 20'x 1 with very unsteady gait to hallway door, then use of wh walker, 60'x 1, Min/CGA, needing therapist assist for safe walker safety / navigation. Patient demonstrates decreased stride along with forward flexed trunk posture and needed several v/c's to control impulsive behaviour. Patient returned to activity room Dalia chair in semi reclined position with lap tray and body alarm, while remaining under [facility] staff Supervision. Will continue per POC as tolerated, total treatment time 16 minutes. Omkar Latif, ECONOMICS ANALYST
--- NOTE | 2018-10-06 07:45 | NUR ---
PT AWAKE, ALERT, UP IN DINING ROOM FOR BREAKFAST WITH PEERS AT THIS TIME.
[2018-10-06 08:11] VITALS: BP 145/68
--- NOTE | 2018-10-06 09:08 | NUR ---
Occupational Therapy evaluation completed on 3 with full eval to follow. Precautions include 3N unit precautions, dementia,decubitus ulcer on buttocks, fall risk,history of recent fall 10/05/18. Patient is high complexity level 57883 via chart review, testing and evaluation. Recommend OT per POC and 24hr supervision/assist and correction return. Thank you for this referral. Shayla Eduardo Otr/L
--- NOTE | 2018-10-06 09:29 | NUR ---
904- PT SITTING IN CHAIR IN DINING ROOM, LOOKED OVER AT THIS NURSE AND STATED "I JUST SLID OUT OF MY CHAIR MYSELF". THIS NURSE REMINDED PT SHE WAS CURRENTLY SEATED IN CHAIR CORRECTLY AND HAD NOT SLID ANYWHERE. PT STATES "OH, OKAY". PT SAT QUIETLY FOR A FEW MOMENTS AND THEN BEGAN ATTEMPTING TO SLIDE SELF OUT OF CHAIR, THIS NURSE AND 2ND RN ASSISTED IN REPOSITIONING PT BACK TO CORRECT POSITION IN CHAIR, PT BECAME ANGRY AND BEGAN YELLING AND SCREAMING "HELP ME! SOMEONE HELP ME!" THIS NURSE AND 2ND RN ATTEMPTED TO DISCERN WHAT PT NEEDED HELP WITH, OFFERED TO TAKE PT TO BATHROOM, GO FOR A WALK, OFFERED FOOD AND FLUIDS, REPOSITIONING, PT REFUSED ALL AND BEGAN VERBALLY AND PHYSICALLY THREATENING STAFF, YELLING "YOU CAN'T HELP ME. NONE OF YOU. GET ME OUT OF HERE OR I'LL KILL EVERY LAST G-DDAMN ONE OF YOU!" PT ATTEMPTING TO STRIKE OUT AT STAFF WITH CLOSED FISTS. AGAIN STAFF ATTEMPTED TO OFFER MULTIPLE NONPHARMALOGICAL CALMING TECHNIQUES WITH NO EFFECT. ATTEMPTED TO ADMINISTER ATIVAN 1MG PO AT 913, PT REFUSED TO TAKE BY MOUTH, STATED "I KNOW WHAT YOU'RE TRYING TO DD" PT VOICING VARIOUS PARANOID DELUSIONS AND APPARENT VISUAL HALLUCINATIONS NOTED PT SPEAKS ABOUT SEEING 3 MEN IN THE ROOM COMING TOWARD HER. ALL ATTEMPTS TO CALM PT INEFFECTIVE. PT WAS GIVEN PRN ATIVAN 1MG IM TO LEFT DELTOID AT 919. WILL MONITOR FOR EFFECT OF MEDICATION.
--- NOTE | 2018-10-06 10:40 | NUR ---
PRN ATIVAN HAS BEEN EFFECTIVE. PT IS CURRENTLY ATTENDING MORNING GROUP, RESTING QUIETLY RECLINED IN CHAIR WITH EYES CLOSED, AROUSES EASILY AND ANSWERS WHEN NAME IS CALLED. Q15 MIN MONITORING CONTINUES.
--- NOTE | 2018-10-06 10:41 | NUR ---
P- CONFUSION, PARANOIA, VISUAL HALLUCINATIONS, LABILE MOOD, AGITATION. I- ORIENTATION, MOOD AND BEHAVIOR ASSESSED. REDIRECTION, REORIENTATION AND 1:1 ATTEMPTED. ASSESSED PT FOR SI/HI, INTENT OR PLAN. ASSESSED PT FOR S/S HALLUCINATIONS, PARANOIA AND/OR DELUSIONS. MEDICATIONS ADMINISTERED PER PHYSICIAN'S ORDERS. ENCOURAGED PT TO ATTEND AND PARTICIPATE IN BRAY MILIEU GROUPS AND ACTIVITIES. R- PT IS ALERT AND ORIENTED TO SELF ONLY, CONFUSED IN ALL OTHER AREAS. PT UNABLE TO STATE WHERE SHE WAS, WHEN QUESTIONED ABOUT WHERE SHE WAS PT STATES "CAN YOU TURN THOSE BUTTONS DOWN FOR ME?". ST/LT MEMORY DEFICITS NOTED. RESPS EASY AND EVEN ON ROOM AIR. MOOD IS LABILE, AFFECT INAPPROPRIATE AT TIMES. SPEECH IS WNL, COHERENT, ABLE TO MAKE NEEDS KNOWN WITHOUT DIFFICULTY. PT DENIES SI/HI, INTENT OR PLAN. PT NOTED TO BE RESPONDING TO APPARENT VISUAL AND AUDITORY HALLUCINATIONS, PT SEEN TALKING TO UNSEEN OTHERS AND REACHING FOR UNSEEN OBJECTS. PARANOID DELUSIONS VOICED BY PT. REDIRECTION ATTEMPTED WITH LITTLE EFFECT. EMOTIONAL SUPPORT PROVIDED. PT CURRENTLY ATTENDING MORNING GROUP. P- PLAN TO CONTINUE CURRENT TREATMENT, CONTINUE TO MONITOR MOOD AND BEHAVIORS, PROVIDE APPROPRIATE REDIRECTION, 1:1 AND REORIENTATION NEEDED. CONTINUE TO ENCOURAGE MEDICATION COMPLIANCE WELL GROUP ATTENDANCE AND PARTICIPATION.
--- NOTE | 2018-10-06 10:45 | NUR ---
, AND ON UNIT TO SEE PT AT THIS TIME, UPDATE GIVEN, AWARE OF MULTIPLE LOOSE BM'S AND IMMODIUM GIVEN OVERNIGHT. MADE AWARE PT W/ LOW GRADE TEMP THIS AM 99.2.
--- NOTE | 2018-10-06 11:47 | NUR ---
AM GROUP/LIGHT THERAPY AND FOCUS GROUP PT WAS PRESENT FOR MORNING GROUP THERAPY RECLINED IN A SHERRY CHAIR SOUND ASLEEP. PT WAS SNORING LOUDLY AND ONLY AWOKE WHEN CHAIR WAS MOVED.
--- NOTE | 2018-10-06 12:13 | NUR ---
ON UNIT TO SEE PT AT THIS TIME, UPDATE GIVEN.
--- NOTE | 2018-10-06 12:16 | NUR ---
TEMP RECHECKED 98.7. PT RESTING QUIETLY WITH EYES CLOSED, AROUSES EASILY TO NAME, STATES SHE IS NOT HUNGRY FOR LUNCH.
--- NOTE | 2018-10-06 15:25 | NUR ---
PT CONTINUES TO NAP INTERMITTENTLY T/O SHIFT, EASILY AROUSABLE VIA VERBAL/TACTILE STIMULI. INCONTINENCE CARE PROVIDED. REPOSITIONED BY STAFF.
--- NOTE | 2018-10-06 15:35 | NUR ---
PM GROUP/ART AND MUSIC PT WAS PRESENT FOR AFTERNOON GROUP THERAPY RECLINED IN A SHERRY CHAIR. PT WAS SLEEPING SO SOUNDLY THAT SHE WAS SNORING. PT DID NOT AWAKEN DURING GROUP
--- NOTE | 2018-10-06 16:30 | NUR ---
PT CONTINUES TO NAP RECLINED IN CHAIR AT THIS TIME, PT IS EASILY AROUSABLE VIA VERBAL/TACTILE STIMULI, PT AWAKENED FOR BLOOD SUGAR CHECK, RESULT 128, PT STATES "NO, NOT HUNGRY" WHEN OFFERED DINNER.
--- NOTE | 2018-10-06 18:14 | NUR ---
SHIFT CHART CHECK COMPLETED.
--- NOTE | 2018-10-06 19:48 | NUR ---
DR PALACIO UPDATED WITH PATIENT TEMPERATURE. THIS NURSE UPDATED DR PALACIO ABOUT EMESIS, FALL, AND DIARRHEA ON 10/05/18. DR PALACIO AWARE OF PATIENT'S LUNG SOUNDS DIMINISHED IN BILATERAL BASES.
[2018-10-06 19:50] VITALS: BP 141/61
--- NOTE | 2018-10-06 20:00 | NUR ---
DR PALACIO ON UNIT TO ASSESS PATIENT
--- NOTE | 2018-10-06 20:22 | NUR ---
RADIOLOGY ON UNIT TO PERFORM CHEST XRAY AT BEDSIDE
--- NOTE | 2018-10-06 21:56 | NUR ---
DR PALACIO UPDATED AND AWARE OF PATIENT CURRENLY ON MACROBID AND URINE CULTURE RESULTS FROM 09/30/18. DR PALACIO AWARE OF CHEST XRAY RESULTS OF NO ACUTE FINDINGS. CONTINUE TO MONITOR PATIENT PER DR. PALACIO
--- NOTE | 2018-10-06 22:10 | NUR ---
PATIENT ALERT WITH CONFUSION. 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 NO RESPIRATORY DISTRESS NOTED. PATIENT WITH NO HALLUCINATIONS OR DELUSIONS. PATIENT WITH NO SUICIDAL OR HOMICIDAL IDEATIONS. PATIENT CONTINUES ON MACROBID FOR +UTI. NO ADVERSE REACTION. PATIENT DENIES DYSURIA. PATIENT MEDICATED WITH TYLENOL 650MG PO FOR ELEVATED TEMPERATURE. TYLENOL WITH EFFECITVE RESULTS. TEMPERTURE RECHECKED AT THIS TIME WITH A RESULT OF 98.4. PATIENT REFUSED A FEW MEDICATIONS AT HS STATING "I DON'T WANT TO GET SICK". PATIENT DENIES NAUSEA AT THIS TIME. SEE [facility] FLOW SHEET FOR SPECIFIC MONITORING
--- NOTE | 2018-10-07 02:43 | NUR ---
24 HR chart check completed.
--- NOTE | 2018-10-07 04:32 | NUR ---
PATIENT YELLING OUT FOR HELP. PATIENT STATED "I'M WET". PATIENT COMBATIVE AND RESISTIVE WITH CARE. PATIENT INCONTINENT X 1. PATIENT YELLING AT NURSING STAFF. PATIENT KICKING, PUNCHING, ATTEMPTED TO SCRATCH, ATTEMPTING TO CLIMB OUT OF BED. PATIENT WITH VULGAR LANGUAGE. PATIENT YELLING FOR "JUANCARLOS" PATIENT YELLING HELP THEY GOING TO KILL ME. REDIRECTION WITH 1:1 THERAPEUTIC INTERVENTIONS AND ATTEMPT TO USE DISTRACTIONS FROM AGGRESSION IS INEFFECTIVE. PATIENT ALSO STATING SHE "HAS TO GET OUT. JUANCARLOS IS COMING TO GET ME. HE WORKS HERE. WE NEED TO GET HIM HERE NOW". PATIENT ALSO STATING "YOU ARE LYING. JUANCARLOS DOES WORK HERE". PATIENT REFUSED ATIVAN 1 MG PO. PATIENT STATED "I'M NOT TAKING THAT. ATIVAN 1 MG IM GIVEN IN RIGHT DELTOID. PATIENT UP IN QUIET ROOM AT THIS TIME WITH ATTEMPT TO DECREASE STIMULI
--- NOTE | 2018-10-07 05:14 | NUR ---
PATIENT SLEPT >7 HOURS OF INTERRUPTED SLEEP THROUGHOUT SHIFT. Q 15 MINUTE CHECKS MAINTAINED
--- NOTE | 2018-10-07 05:42 | NUR ---
PATIENT YELLING OUT AT THIS TIME. PATIENT USING VULGAR LANGUAGE. PATIENT STATING "MARCOS, HE'S OVER THERE WORKING WITH THE OTHER GUYS. JUANCARLOS, THESE GIRLS NEED HELP
--- NOTE | 2018-10-07 07:07 | NUR ---
OT NOTE Attempted to see pt this A.M. for OT session and upon arrival pt was asleep in remy chair in the dining room. U staff reported that pt was agitated last night and recieved Ativan. Requesting to let pt rest at this time. Will continue with POC as able. MARYELLEN Neal/[place]
--- NOTE | 2018-10-07 07:10 | NUR ---
PHYSICAL THERAPY Patient was sound asleep in activity room Dalia chair this am upon therapist arrival. U staff reports patient was very agitated last night, with no sleep and had received Ativan this morning. Patient inappropriate at this time for therapy treatment and will continue per POC as able. Omkar Latif, AUTOMATIC PROFILE SHAPER OPERATOR
--- NOTE | 2018-10-07 07:37 | NUR ---
TEMP REASSESED AT THIS TIME, RESULT 97.3. PT RESTING QUIETLY RECLINED IN GERICHAIR, RESPONDS EASILY TO VERBAL STIMULI, OPENS EYES SPONTANEOUSLY.
[2018-10-07 07:41] VITALS: BP 110/68
--- NOTE | 2018-10-07 08:00 | NUR ---
ON UNIT TO SEE PT AT THIS TIME, UPDATE GIVEN.
--- NOTE | 2018-10-07 10:35 | NUR ---
P- NAPPING INTERMITTENTLY T/O MORNING, EASILY AROUSABLE VIA VERBAL/TACTILE STIMULI. OPENS EYES SPONTANEOUSLY, STATES "I'M TIRED" AND GOES BACK TO SLEEP. REFUSED AM MEDICATIONS AND BREAKFAST. I- ORIENTATION, MOOD AND BEHAVIOR ASSESSED. ASSESSED PT FOR SI/HI, INTENT OR PLAN. ASSESSED PT FOR S/S HALLUCINATIONS, PARANOIA AND/OR DELUSIONS. MEDICATIONS ADMINISTERED PER PHYSICIAN'S ORDERS. ADL CARE PROVIDED FOR PT BY STAFF ASSIST X2. ENCOURAGED PT TO ATTEND AND PARTICIPATE IN [facility] GROUPS AND ACTIVITIES ABLE. R- PT IS ALERT AND ORIENTED TO SELF, ANSWERS TO NAME, CONFUSION NOTED IN OTHER AREAS. RESPS EASY AND EVEN ON ROOM AIR. MOOD IS SLIGHTLY IRRITABLE, PT BEGAN SWATTING AT THIS NURSE THIS NURSE PROVIDED REPOSITIONING. AFFECT IS FLAT. SPEECH IS SOFT, COHERENT, ABLE TO ANSWER SIMPLE QUESTIONS BUT PT DOES NOT OFFER MUCH SPONTANEOUS VERBALIZATION THIS DATE SHE IS NAPPING INTERMITTENTLY. PT ANSWERED THIS NURSE BY SAYING "I'M TIRED" AND THEN RETURNING BACK TO SLEEP. PT REFUSED AM MEDICATIONS. NO VOICED SI/HI, NO S/S HALLUCINATIONS/PARANOIA OR DELUSIONS OBSERVED OF PRESENT TIME THIS DATE. PT DID NOT ATTEND MORNING GROUP D/T NAPPING. P- PLAN TO CONTINUE CURRENT TX, CONTINUE TO MONITOR MOOD AND BEHAVIORS, PROVIDE APPROPRIATE REDIRECTION, REORIENTATION AND 1:1 NEEDED. CONTINUE TO ATTEMPT TO ENCOURAGE MEDICATION COMPLIANCE WELL GROUP ATTENDANCE AND PARTICIPATION APPROPRIATE.
--- NOTE | 2018-10-07 11:43 | NUR ---
AM GROUP/EXERCISE, MOTIVATIONAL VIDEO AND FOCUS DISCUSSION PT DID NOT ATTEND MORNING GROUP THERAPY. PT WAS IN THE DAY ROOM RECLINED IN A SHERRY CHAIR SOUND ASLEEP. PER NURSING REPORTS, PT WAS UP MOST OF THE NIGHT. PT IS UNABLE TO PARTICIPATE IN GROUP ACTIVITIES AT THIS TIME DUE TO COGNITIVE IMPAIRMENT AND HIGH LEVEL OF CONFUSION
--- NOTE | 2018-10-07 12:46 | NUR ---
PT WOKE UP AND IMMEDIATELY BEGAN ATTEMPTING TO GET OUT OF CHAIR UNASSISTED, PT UNSAFE TO AMBULATE OR TRANSFER INDEPENDENTLY D/T UNSTEADY GAIT. STAFF IMMEDIATELY RESPONDED TO PT AND ASSISTED PT BACK INTO PROPER POSITION IN CHAIR. PT ATTEMPTED TO BECOME PHYSICALLY COMBATIVE WITH STAFF, SWINGING AT AND ATTEMPTING TO KICK STAFF. PT TAKEN TO QUIET ROOM FOR DEESCALATION. OFFERED PT BATHROOM, PT STATES "NO, I'M NOT WET! LEAVE ME ALONE!" PT CONTINUES TO STRIKE OUT AT STAFF. PT REFUSED LUNCH AND MULTIPLE DIFFERENT CHOICES OF FLUIDS INCLUDING SODA, WATER, JUICE, COFFEE, TEA AND A MILKSHAKE, PT STATES "NO, I DON'T WANT ANY OF IT!" PT AGREED TO TAKE AFTERNOON ROUTINE MEDICATIONS IN ONE BITE OF PUDDING. PT THEN BEGAN YELLING AND SCREAMING "GET OUT OF HERE. I GOTTA GET THE HELL OUT OF HERE RIGHT NOW. DON, MARCOS, COME AND GET ME OUT OF HERE!" THIS NURSE OFFERED TO HELP PT AND REQUESTED PT TO SPECIFICALLY STATE WHAT I COULD DO FOR HER, PT UNABLE TO STATE WHAT THIS RN COULD HELP HER WITH, PT STATES "I NEED HELP WITH EVERY DAMN THING I CAN DO! JUST GIVE A SHOT OR SOMETHING, I NEED SOMETHING, I CAN'T WAIT ANYMORE". ALL ATTEMPTS TO REORIENT AND PROVIDE EMOTIONAL SUPPORT FOR PT ARE UNSUCCESSFUL. PT REMAINS IN QUIET ROOM AT THIS TIME 1:1 WITH NURSE, ATTEMPTING USE OF RELAXING MUSIC FOR CALMING.
--- NOTE | 2018-10-07 13:01 | NUR ---
PT RESPONDING TO APPARENT INTERNAL VISUAL/AUDITORY STIMULI, STATING "I SEE YOU, I SEE YOU ALL PATRICIA! TAKE ME OUT NOW!" AND GESTURING INTO THE AIR TO UNSEEN OTHERS. PT THEN BEGAN DISROBING STATING "I HAVE TO TAKE MY CLOTHES OFF. I HAVE TO SHOW MY BOOBS. I'LL TAKE THEM WITH ME". ASSISTED PT IN REAPPLYING CLOTHING TO COVER SELF. PT REMAINS IN QUIET ROOM FOR DEESCALATION WITH CALMING MUSIC PLAYING IN ATTEMPT TO CALM PT.
--- NOTE | 2018-10-07 14:46 | NUR ---
CALLED AND UPDATE ON CURRENT PATIENT STATUS AND BEHAVIORS. PER GIVE PRN LUCINA 10MH IM NOW.
--- NOTE | 2018-10-07 14:50 | NUR ---
PT ASSISTED TO BED X3 STAFF ASSIST PER PT REQUEST. INCONTINENCE CARE PROVIDED. PT CONTINUES TO EXHIBIT COMBATIVE BEHAVIORS AT THIS TIME. AT THE CONCLUSION OF INCONTINENCE CARE PT REQUESTED TO BE LEFT ALONE TO LAY IN HER BED FOR A WHILE. BED ALARMS ACTIVATED, BED LOWERED TO LOWEST POSITION AND LIGHTS DIMMED FOR PT. Q15 MIN MONITORING CONTINUES.
--- NOTE | 2018-10-07 15:18 | NUR ---
Treatment Plan meeting with Dr. Huffman, RN, AT, SW and [facility]. Plan for discharge next week. Dr. Huffman doing Medication adjustments.
--- NOTE | 2018-10-07 15:36 | NUR ---
PM GROUP/LEISURE INTERESTS PT DID NOT ATTEND AFTERNOON GROUP THERAPY. PT WAS IN DAY ROOM RECLINED IN A CHAIR SLEEPING.
--- NOTE | 2018-10-07 15:45 | NUR ---
PT THROWING LEGS OFF THE SIDE OF THE BED ATTEMPTING TO GET UP UNASSISTED. PT YELLING THAT SHE NEEDS TO GO AND GET "DON". ALL ATTEMPTS TO REORIENT PT UNSUCCESSFUL. PT ASSISTED TO WHEELCHAIR WITH STAFF ASSIST X3. TAKEN TO DINING ROOM AT THIS TIME, PT APPEARED TO CALM DOWN, ENGAGED IN MEANINGFUL CONVERSATION WITH THIS NURSE ABOUT HER FAMILY AND HER SON BEING A PHARMACIST. PT WAS GIVEN A CUP OF APPLE JUICE WHICH SHE CONSUMED INDEPENDENTLY.
--- NOTE | 2018-10-07 16:42 | NUR ---
PT SITTING IN DINING ROOM AWAITING DINNER WHEN SHE BEGAN SCREAMING AND YELLING ABOUT 3 MEN COMING TO GET HER, SPEECH NONSENSICAL AT TIMES, PT VISIBLY ANXIOUS AND DISTRAUGHT, UNABLE TO CALM, REDIRECT, REORIENT OR PRESENT REALITY D/T PT'S OVERWHELMING LEVEL OF ANXIETY AND PARANOIA AT THIS TIME. PT ATTEMPTING TO KICK, HIT, AND BITE STAFF. FOOD, FLUIDS, BATHROOM OFFERED, PT REFUSED ALL, ATTEMPTED TO THROW DINNER TRAY AT THIS RN. PT ESCORTED TO QUIET ROOM WITH LIGHTS DIMMED FOR DESTIMULATION WITHOUT ANY EFFECT ON CALMING PT. ALL NONPHARMALOGICAL ATTEMPTS TO CALM PT PROVE TO BE INEFFECTIVE AT THIS TIME. PRN GEODON 10MG IM GIVEN PER 'S TELEPHONE INSTRUCTIONS TO PT'S RIGHT DELTOID, PT TOLERATED WELL. WILL MONITOR FOR EFFECTIVENESS OF MEDICATION.
--- NOTE | 2018-10-07 17:50 | NUR ---
GEODON HAS BEEN EFFECTIVE. PT NO LONGER SCREAMING, VOICING PARANOIA OR RESPONDING TO INTERNAL STIMULI AT THIS TIME. PT IS RESTING QUIETLY RECLINED IN GERICHAIR, EYES CLOSED, RESPS EASY AND EVEN ON ROOM AIR. PT AROUSES EASILY TO VERBAL/TACTILE STIMULI. PT REFUSED DINNER DESPITE MULTIPLE ATTEMPTS BY DIFFERENT STAFF MEMBERS TO ENCOURAGE PT TO EAT. PT STATES "I KNOW I SHOULD EAT BUT I'M NOT HUNGRY. GET IT AWAY FROM ME OR YOU'LL BE SORRY!"
--- NOTE | 2018-10-07 18:00 | NUR ---
Staff was assisting pt out of bed to wheelchair approximately at approximately 1550 for dinner when a small skin tear of unknown origin was observed to pt's left elbow. At the time the area was discovered, pt was exhibiting combative behaviors, paranoia and delusions and pt refused to allow this nurse to measure or take wound photos of the area. Pt did allow a dry dressing to be applied. Once pt had calmed down the area was able to be assessed and wound photo was taken at approximately 1800. Open area to left elbow measures 1.0cm x 0.6cm x <0.1cm. Wound bed is red in color, surrounding skin with scattered bruising noted. No foul odor or drainage noted. Call placed to resident phone for wound care orders, no answer, awaiting return call.
--- NOTE | 2018-10-07 18:58 | NUR ---
SHIFT CHART CHECK COMPLETED.
[2018-10-07 20:00] VITALS: BP 114/74
--- NOTE | 2018-10-07 20:47 | NUR ---
PT YELLING OUT. THROWING FOOD AND DRINKS ACROSS DININGROOM. UNABLE TO REDIRECT. WHEN ASKED PT TO EXPLAIN WHAT SHE WAS THINKING OR FEELING PT STATED "I DONT HAVE TO EXPAIN A DAMN THING TO YOU" PT ALSO ASKING FOR HERION AND YELLING FOR CLAUDIA BAILEY, AND FAIZA. PT STATING "THEY ARE TEARING THE HELL OUT OF ME. I WANT MY FUCKING SOCKS". PT ATTEMPTING TO CLIMB OUT OF CHAIR. 1:1 INEFFECTIVE. SNACK/DRINK INEFFECTIVE. AND PROVIDING A LOW STIMULI ENVIRONMENT INEFFECTIVE. PRN ATIVAN IM GIVEN AT THIS TIME. WILL MONITOR EFFECTIVENESS OF MEDICATION.
--- NOTE | 2018-10-07 21:20 | NUR ---
PRN ATIVAN EFECTIVE. PT RESTING QUIETLY IN QUIET ROOM ACROSS FROM NURSES STATION. WILL CONTINUE TO MONITOR EFFECTIVENESS OF MEDICATION.
--- NOTE | 2018-10-08 05:10 | NUR ---
MICHAEL BERKOWITZ [id number] Please refer to the physician's history and physical for past medical history, comorbid conditions, and allergies. Diagnosis: MAJOR DEPRESSION RECURRENT Cameron Score: 15,AT RISK WOUND DESCRIPTIONS: Location of the wound: left elbow Type of wound: skin tear Thickness: Partial Size: 1.5cm x 0.8cm x 0.1cm Tunneling: none Undermining: none Sinus Tract: none Presence of Exudate: Serosanguineous Amount: Light Color: Red Odor: None Periwound Skin Appearance: ecchymotic Wound edges: approximated Pain (associated with wound): none at time of assessment How does patient state this happened? pt unable to state how this happened Surface the patient is resting on: Proform SKIN PREVENTION RECOMMENDATION: 1. Pressure redistribution support surface as appropriate 2. Elevate heels 3. Remove boots/TEDS every shift and reapply 4. Head of bed 30 degrees as tolerated 5. Assess nutrition and hydration 6. Manage moisture 7. Avoid the use of containment devices while in bed 8. Use absorptive products on surfaces limit layers of linens on bed 9. Turn and reposition every 1-2 hours in bed and every 1 hour in chair as tolerated 10. Weight shifts every 15 minutes while up in chair 11. Offloading with pillows or device to keep heels elevated off bed 12. Monitor skin at least every shift 13. Inspect under medical devices twice a day WOUND TREATMENT RECOMMENDATIONS: Clarify Skin tear guidelines: Cleanse right arm, right arm underside and left elbow with nss and apply sureprep around the wound therahoney to wound bed and cover with optifoam gentle.
--- NOTE | 2018-10-08 05:17 | NUR ---
PT SLEPT APPROXIAMTELY 8 HOURS THIS SHIFT. 15 MINUTE SAFETY CHECKS MAINTAINED.
--- NOTE | 2018-10-08 05:18 | NUR ---
24 HR chart check completed.
--- NOTE | 2018-10-08 05:21 | NUR ---
ALERT TO PERSON WITH CONFUSION NOTED. ANGRY/IRRITABLE, LABILE, PSYCHOTIC, AGITATED, DISRUPTIVE. NO HALLUCINATIONS NOTED. PARANOID DELUSIONS NOTED. NO SI/HI NOTED. UNABLE TO REDIRECT PT WHEN PT IS SCREAMING OUT. PT SCREAMS OUT FOR MULTIPLE PEOPLE. 1:1, LOW STIMULI, SNACK/DRINK ALL INEFFECTIVE. CONTINUE TO OFFER ALL THE ABOVE AND TO REORIENT NEEDED. MEDICATION COMPLIANT AFTER PRN WAS EFFECTIVE. UNABLE TO COMPLETE MEDICATION EDUCATION DUE TO COGNITIVE IMPAIRMENT. Q15 MINUTE SAFETY CHECKS MAINTAINED.
--- NOTE | 2018-10-08 07:13 | NUR ---
OT NOTE Attempted to see pt this A.M. for OT session and upon arrival pt was supine in bed. Pt was unable to arouse to verbal stimuli will check back at a later time/date. MARYELLEN Neal/[place]
[2018-10-08 07:26] VITALS: BP 140/62; BP 148/76
--- NOTE | 2018-10-08 07:48 | NUR ---
PHYSICAL THERAPY Nursing screen received. PAtient already being treatd in PT. Thank you. Soheila Ocasio,PT
--- NOTE | 2018-10-08 08:18 | NUR ---
SPOKE WITH POA IN REFERENCE TO CONSENT TO DEBRIDE PT, POA APPROVED OF PROCEDURE. AT THIS TIME. WOUND NURSE UPDATED.
--- NOTE | 2018-10-08 09:05 | NUR ---
OT NOTE Pt was seen this A.M. 1:1 for 15 minute OT session. Upon arrival pt was sitting upright in remy chair in dining room. Pt identified by name and and had no complaints at this time. Pt was taken into her bedroom where she completed sit to stand transfer from chair level with maxA X 2 followed by stand pivot to EOB with maxA X 2. There she transferred sit to supine with maxA X 2. Pt was left supine in bed with bed alarm activated for safety and under U nurse care. Continue with rec D/C plan to return to LTC. MARYELLEN Neal/[place]
--- NOTE | 2018-10-08 09:34 | NUR ---
Dr. Alex notified of wound care recommendations.
[2018-10-08 09:40] LABS: HEMATOCRIT 41.3 % (37.0-47.0); HEMOGLOBIN 13.5 g/dl (12.0-16.0); MEAN CORPUSCULAR HGB 29.7 pg (27.0-31.0); MEAN CORPUSCULAR HGB CONC 32.7 g/dl (33.0-37.0); MEAN PLATELET VOLUME 10.7 fl (9.6-12.3); PLATELET COUNT AUTOMATED 160 10*3/uL (130-400); RED BLOOD COUNT 4.54 10*6/uL (4.10-5.10); RED CELL DISTRI WIDTH 22.7 % (0-14.5); WHITE BLOOD COUNT 7.8 10*3/uL (4.8-10.8)
[2018-10-08 10:12] LABS: BUN 30 mg/dl (7-24); CHLORIDE 106 mmol/L (98-107); CREATININE 1.04 mg/dL (0.55-1.02); POTASSIUM 4.5 mmol/L (3.5-5.1); SODIUM 138 mmol/L (136-145)
--- NOTE | 2018-10-08 10:45 | NUR ---
P: POOR INTAKE WITH FOOD AND DRINKS, INCREASED DROWSINESS, PT SLEEPING AND NOT INTERACTING WITH STAFF I: ATTEMPT TO STIMULATE PT, ENCOURAGE MEALS. UP TO CHAIR, BLOOD WORK COMPLETED. R: PT AWAKES WITH STIMULATION FROM NURSE, STAFF, AND THERAPY. P: ENCOURAGE MEALS AND AWAKENINGS
--- NOTE | 2018-10-08 10:51 | NUR ---
PT CONTINUES TO BE RESTING
--- NOTE | 2018-10-08 10:55 | NUR ---
DR MANN ON UNIT TO SEE PT.
--- NOTE | 2018-10-08 10:56 | NUR ---
WOUND CARE ON UNIT TO DEBRIDE PT WOUNDS. PT TOLERATED WELL.
[2018-10-08 11:05] LABS: PLATELET SUFFICIENCY NORMAL (NORMAL); TOTAL CELLS COUNTED 100 #CELLS
--- NOTE | 2018-10-08 11:50 | NUR ---
AM GROUP/LIGHT AND LAUGHTER THERAPY PT WAS PRESENT FOR MORNING GROUP THERAPY RECLINED AND NAPPING IN A CHAIR. PT WAS VISUALLY HALLUCINATING AND BEGAN EXIT SEEKING ALMOST IMMEDIATELY. PT KEPT ATTEMPTING TO GET OUT OF THE CHAIR STATING, "I HAVE TO GET OUT OF HERE. THE NURSE SAID THAT I CAN LEAVE." PT THOUGHT THAT A PEER SITTING NEAR WAS "THAT MAN" AND KEPT TRYING TO THROW HER BLANKET OVER THE FEMALE PEER. PT WOULD BECOME AGITATED AND DOZE OFF REPEATEDLY.
--- NOTE | 2018-10-08 15:06 | NUR ---
PM GROUP/ART AND MUSIC PT WAS PRESENT FOR GROUP RECLINED IN CHAIR SLEEPING. PT WOULD SING ALONG WITH THE MUSIC OCCATIONAL AND DID EXHIBIT VISUAL HALLUCINATIONS. PT WAS REACHING FOR SOMETHING UNSEEN AND TALKING TO UNSEEN OTHERS.
--- NOTE | 2018-10-08 15:11 | NUR ---
Nursing screen received and patient is already being treated in Occupational Therapy. Shayla Eduardo OTR/l
--- NOTE | 2018-10-08 15:14 | NUR ---
OCCUPATIONAL THERAPY CO-SIGN I approve of the Occupational Therapy notes written above. ARTHUR PAIZ OTR/[place]
--- NOTE | 2018-10-08 19:55 | NUR ---
PT BEING DISRUPTIVE IN DININGROOM. YELLING OUT "PEOPLE IN THE NEXT ROOM ARE COMING FOR ME". PT REMOVED TO LOW STIMULI ENVIRONMENT AND ATTEMPTED TO PROVIDE 1:1. PT STARTED YELLING AT STAFF TO GET THE EHLL OUT SHE DIDNT WANT HELP FROM ANYONE. REFUSING TO ALLOW HOC AND 1:1 INTERACTIONS. PT YELLING FOR HELP AND STATING SHE WAS GOING TO CALL THE LAW. PT THEN STARTED TO STRIKE OUT AT STAFF, ATTEMPTING TO THROW SELF OUT OF THE SHERRY CHAIR. ATTEMPTING TO GRAB STAFF ARMS AND HANDS AND ATTEMPTING TO DIG NAILS INTO STAFF SKIN. YELLING FOR GEN. PT YELLING GEN LEFT HER HERE AND DIDNT WANT TO TAKE CARE OF HER ANYMORE. UNABLE TO REDIRECT PT. PT REFUSING HS MEDICATIONS AT THIS TIME. PRN ATIVAN IM GIVEN AT THIS TIME TO DECREASE ANXIETY/AGITATION. WILL MONITOR EFFECTIVENESS OF MEDICATIONS.
[2018-10-08 20:00] VITALS: BP 151/60
--- NOTE | 2018-10-08 20:15 | NUR ---
PRN ATIVAN EFFECTIVE. WILL CONTINUE TO MONITOR EFFECTIVENESS OF MEDICATION.
--- NOTE | 2018-10-08 23:20 | NUR ---
24 HR chart check completed.
--- NOTE | 2018-10-08 23:32 | NUR ---
PT ALERT TO PERSON AND APPROXIAMTE PLACE. PT STATED SHE WAS AT [facility] OTHERWISE CONFUSED. ANGRY IRRITABLE, LABILE, AND PSYCHOTIC. AGITATED, AGGRESSIVE, AND DISRUPTIVE. AUDITORY AND VISUAL HALLUCINATIONS NOTED. PT WAS LOOKING OVER HER SHOULDER TALKING TO UNSEEN OTHERS. PARANOID STATING PEOPLE IN THE NEXT ROOM WAS COMING AFTER HER. FALL PRECAUTIONS MAINTAINED. 1:1 PROVIDED TO ALLOW TIME FOR PT TO VENT FEEELINGS. SNACK/DRINK OFFERED. LOW STIMULI ENVIRONMENT PROVIDED. ALL INEFFECTIVE. PT BECAME COMBATIVE AND REFUSED TO INTERACT WITH STAFF AND REFUSED HOC. MEDICATION COMPLIANT AFTER PRN ATIVAN EFFECTIVE. PLAN IS TO CONTINUE CURRENT TREATMENT PLAN, CONTINUE TO REORIENT PT NEEDED, CONTINUE TO OFFER THERAPEUTIC COMMUNICATION, AND ENCOURAGE MEDICATION COMPLIANCE. Q15 MINUTE SAFETY CHECKS MAINTAINED. SEE [facility] FLOWSHEET FOR SPECIFIC MONITORING.
--- NOTE | 2018-10-09 05:20 | NUR ---
PT SLEPT APPROXIAMTLEY 8 HOURS THIS SHIFT. Q15 MINUTE SAFETY CHECKS MAINTAINED.
[2018-10-09 07:15] VITALS: BP 137/70
--- NOTE | 2018-10-09 11:45 | NUR ---
AM GROUP/EXERCISES/STORY PT ATTENDED BUT UNABLE TO PARTICIPATE DUE TO RESTING IN CHAIR. PT WOKE ON AND OFF THROUGHOUT GROUP BUT DID NOT BECOME AGITATED OR EXPRESS CONFUSION. PT WILL CONTINUE TO ATTEND FUTURE GROUPS AND WILL CONTINUE TO BE ENCOUARGED TO ATTEND AND PARTICIPATE TO BEST OF PT ABILITY.
--- NOTE | 2018-10-09 12:36 | NUR ---
P: AUDITORY, VISUAL, AND TACTILE HALLUCINATIONS- PT OBSERVED TO BE SPEAKING TO UNSEEN OTHERS, REACHING FOR ITEMS IN THE AIR, INCREASED AGITATION AND YELLING OUT "HEY HEY GET MY DAUGHTER OVER HERE NOW" I: PRESENT REALITY WITH EACH INTERACTION AND NEEDED, OFFER DIVERSION ACTIVITIES, PROVIDE INCONTINENCE CARE NEEDED R: PT CONTINUES TO SPEAK TO UNSEEN OTHERS, REACHING FOR ITEMS IN THE AIR, YELLING OUT INTERMITTENTLY P: MONITOR PT BEHAVIORS ON Q15 MIN SAFETY CHECKS, ENCOURAGE MED COMPLIANCE, PRESENT REALITY WITH EACH INTERACTION AND NEEDED PT ALERT TO PERSON ONLY, SHORT TERM MEMORY DEFICITS NOTED. PT DENIES ANY SUICIDAL/HOMICIDAL THOUGHTS. PT CALM, INTERACTIVE WITH STAFF AT TIMES. PT UP TO A GERICHAIR D/T INABILITY TO AMBULAE INDEPENDENTLY AND LACK OF SAFETY AWARENESS. PT INCONTINENT OF BOWEL AND BLADDER, CARE PROVIDED NEEDED.
--- NOTE | 2018-10-09 17:00 | NUR ---
PT C/O KNEE PAIN, UNABLE TO RATE ON PAIN SCALE. PT MEDICATED WITH TYLENOL 650MG PO PRN PER ORDERS. WILL CONTINUE TO MONITOR.
--- NOTE | 2018-10-09 18:02 | NUR ---
TYLENOL EFFECTIVE, NO FURTHER C/O PAIN NOTED.
[2018-10-09 20:00] VITALS: BP 130/84
--- NOTE | 2018-10-09 22:00 | NUR ---
MEDICATION COMPLIANT WITHOUT DIFFICULTY. PT INTERACTING WITH PEERS AND STAFF. GRABBING AT UNSEEN OBJECTS IN THE AIR. TOSSING UNSEEN OBJECTS ON TO THE DINNINGROOM TABLE. ALERT TO PERSON WITH CONFUSION NOTED. NO PARANOIA NOTED AT THIS TIME. 1:1 PROVIDED TO ALLOW TIME FOR PT TO VENT FEELINGS. SNACK/DRINK PROVIDED. PT TRANSFERRED TO BED X 2 ASSIST. INCONTINENCE CARE PROVIDED. MOUTH CARE PROVIDED. PT DENIED ANY S/S OF PAIN. Q15 MINUTE SAFETY CHECKS MAINTAINED. SEE [facility] FLOWSHEET FOR SPECIFIC MONITORING.
--- NOTE | 2018-10-09 23:46 | NUR ---
PT ATTEMPTING TO GET OUT OF BED UNASSISTED. PLACED IN SHERRY CHAIR NEAR NURSES STATION AND PT ATTEMPTING TO GET OUT OF CHAIR. STIKING OUT AT [facility] THERAPIST. THIS NURSE PROVIDED 1:1 TO ALLOW PT TO VENT FEELINGS. PT STATED IT WAS THANKSGIVING AND SHE WANTED TO JUST LEAVE AND BE WITH HER FAMILY ON THE HOLIDAY. ATTEMPTED TO PROVIDE SNACK AND DRINK AND PT REFUSED. PT CONTINENT AT THIS TIME. THIS NURSE ASKED PT IF SHE WAS ANXIOUS AND IF SHE WANTED SOMETHING TO HELP HER CALM DOWN AND PT STATED "YES. GO GET IT NOW" PRN ATIVAN PO GIVEN AT THIS TIME. 1:1 CONTINUES UNTIL PT IS ABLE TO CALM DOWN AND MEDICATION EFFECTIVE.
--- NOTE | 2018-10-10 00:16 | NUR ---
24 HR chart check completed.
--- NOTE | 2018-10-10 00:45 | NUR ---
PRN ATIVAN MINIMALLY EFECTIVE. PT SITTING QUIETLY AT TIMES THEN WILL YELL OUT, GRABBING AT UNSEEN OBJECTS IN THE AIR. REDIRECTABLE AT TIMES. WILL CONTINUE TO MONITOR EFFECTIVENESS OF MEDICATION.
--- NOTE | 2018-10-10 06:32 | NUR ---
PT SLEPT APPROXIMATELY 1 HOUR THIS SHIFT. Q15 MINUTE SAFETY CHECKS MAINTAINED. SEE [facility] FLOWSHEET FOR SPECIFIC MONITORING.
[2018-10-10 07:10] VITALS: BP 159/61
--- NOTE | 2018-10-10 07:48 | NUR ---
SPOKE WITH AT [phone] RE:PT PERCOCET ORDER BEING AUTO D/C PER . HE WILL FIX IT. NO FURTHER ORDERS AT THIS TIME.
--- NOTE | 2018-10-10 08:16 | NUR ---
PT YELLING OUT, HITTING STAFF MEMBERS, ATTEMPTING TO BITE, SPITTING, INCREASED ANXIETY AND AGITATION. PT TOILETED, OFFERED BREAKFAST, OFFERED ACTIVITY MAT, TV, ETC. ALL INTERVENTIONS INEFFECTIVE, PT BEHAVIORS CONTINUE, PT MEDICATED WITH ATIVAN IM PER ORDERS.
--- NOTE | 2018-10-10 09:07 | NUR ---
IM ATIVAN INEFFECTIVE, PT SITTING IN GERICHAIR IN QUIET ROOM, RESTING WITH EYES OPEN. WILL CONTINUE TO MONIOR.
--- NOTE | 2018-10-10 12:39 | NUR ---
ON UNIT TO ASSESS PT, UPDATED PROVIDED, ADVISED THAT THIS NURSE HELD PT SLIDING SCALE INSULIN D/T PT SLEEPING FROM RECEIVING IM ATIVAN THIS AM AND REFUSING TO EAT.
--- NOTE | 2018-10-10 15:58 | NUR ---
PM GROUP/MUSIC/LEISURE SKILLS PT ATTENDED BUT UNABLE TO PARTICIPATE DUE TO SLEEPING IN RECLINER. PT DID NOT WAKE TO PARTICIPATE BUT WILL CONTINUE TO BE ENCOURAGED TO PARTICIPATE TO BEST OF ABILITY IN FUTURE GROUP SESSIONS.
[2018-10-10 20:00] VITALS: BP 145/62
--- NOTE | 2018-10-10 23:16 | NUR ---
PT ALERT TO PERSON WITH CONFUSION NOTED. STABLE MOOD AND CALM PT WAS SLEEPING SINCE THE START OF THE SHIFT. NO HALLUCINATIONS OR DELUSIONS NOTED. MEDICATION COMPLIANT WITHOUT DIFFICULTY. NO ADVERSE MOODS OR BEHAVIORS NOTED AT THIS TIME. WILL CONTINUE TO MONITOR MOODS AND BEHAVIORS THROUGH OUT THE SHIFT. Q15 MINUTE SAFETY CHECKS MAINTAINED. SEE [facility] FLOWSHEET FOR SPECIFIC MONITORING.
--- NOTE | 2018-10-11 06:27 | NUR ---
PT SLEPT APPROXIMATLEY 9 HOURS THIS SHIFT. Q15 MINUTE SAFETY CHECKS MAINTAINED.
--- NOTE | 2018-10-11 06:45 | NUR ---
MICHAEL BERKOWITZ [id number] Please refer to the physician's history and physical for past medical history, comorbid conditions, and allergies. Diagnosis: MAJOR DEPRESSION RECURRENT Cameron Score: 15,AT RISK WOUND DESCRIPTIONS: Location of the wound: left elbow distal Type of wound: skin tear Thickness: Partial Size: 1.5cm x 0.8cm x 0.1cm Tunneling: none Undermining: none Sinus Tract: none Presence of Exudate: Serosanguineous Amount: Light Color: Red Odor: None Periwound Skin Appearance: ecchymotic Wound edges: approximated Pain (associated with wound): none at time of assessment How does patient state this happened? pt unable to state how this happened Location of the wound: left elbow proximal Type of wound: skin tear Thickness: Partial Size: 1.6cm x 1.4cm x 0.1cm Tunneling: none Undermining: none Sinus Tract: none Presence of Exudate: Serosanguineous Amount: Light Color: Red Odor: None Periwound Skin Appearance: eccyhmotic Wound edges: approximated Pain (associated with wound): none at time of assessment How does patient state this happened? pt unable to state how this happened Location of the wound: left lower extremity Thickness: Partial Size: 12.0cm x 1.5cm x 0.1cm Tunneling: none Undermining: none Sinus Tract: none Presence of Exudate: None Amount: None Color: Red Odor: None Periwound Skin Appearance: Normal Wound edges: approximated Pain (associated with wound): none at time of assessment How does patient state this happened? pt unable to state how this happened Location of the wound: right arm Type of wound: skin tear Thickness: Partial Size: 1.8cm x 1.7cm x 0.1cm Tunneling: none Undermining: none Sinus Tract: none Presence of Exudate: Serosanguineous Amount: Light Color: Red Odor: None Periwound Skin Appearance: ecchymotic Wound edges: approximated Pain (associated with wound): none at time of assessment How does patient state this happened? pt unable to state how this happened Location of the wound: right arm underside Type of wound: skin tear Thickness: Partial Size: 0.6cm x 0.4cm x 0.1cm Tunneling: none Undermining: none Sinus Tract: none Presence of Exudate: none Amount: None Color: Red Odor: None Periwound Skin Appearance: ecchymotic Wound edges: approximated Pain (associated with wound): none at time of assessment How does patient state this happened? pt unable to state how this happened Location of the wound: left buttocks Type of wound: stage 3 Thickness: Full Size: 2.0cm x 1.8cm x <0.1cm Tunneling: none Undermining: none Sinus Tract: none Presence of Exudate: Serosanguineous Amount: Light Color: Yellow, red Odor: None Periwound Skin Appearance: Scar Wound edges: approximated Pain (associated with wound): none at time of assessment How does patient state this happened? pt unable to state how this happened Surface the patient is resting on: Proform SKIN PREVENTION RECOMMENDATION: 1. Pressure redistribution support surface as appropriate 2. Elevate heels 3. Remove boots/TEDS every shift and reapply 4. Head of bed 30 degrees as tolerated 5. Assess nutrition and hydration 6. Manage moisture 7. Avoid the use of containment devices while in bed 8. Use absorptive products on surfaces limit layers of linens on bed 9. Turn and reposition every 1-2 hours in bed and every 1 hour in chair as tolerated 10. Weight shifts every 15 minutes while up in chair 11. Offloading with pillows or device to keep heels elevated off bed 12. Monitor skin at least every shift 13. Inspect under medical devices twice a day WOUND TREATMENT RECOMMENDATIONS: Clarify Skin tear guidelines: Cleanse right arm, right arm underside, left elbow proximal, and left elbow distal with nss and apply sureprep around the wound therahoney to wound bed and cover with optifoam gentle. Partial thickness guidelines: Cleanse left lower extremity with nss and apply therahoney cover with non-adherent then light wrap with rolled gauzed. Continue stage 3 guidelines to left buttocks and wheelchair cushion and heel raiser pro boots.
--- NOTE | 2018-10-11 07:05 | NUR ---
PHYSICAL THERAPY Patient seen this am for therapy visit and was supine in bed upon therapist arrival. OT medical office assistant instructor was present for observation only during entire WRAPPER CASHIER visit and U staff member present in room for transfer out of bed only. Patient was alert hard to understand due to "mumbling" vocabulary this morning. Patient transfers supine to sit EOB with MOD A x 1 and sit to stand MOD A x 2. Patient ambulates GROCERY BUYER/Min, plus single handrail support, 50'x 1, demonstrating very slow alix, unsteady gait and needed v/c to improve upright posture. Patient fatigues quickly and returned to [facility] chair in activity following treatment. Patient remained in activity room with body alarm and under [facility] staff Supervison. Will continue per POC as tolerated, total treatment time 14 minutes. Omkar Latif, WRAPPER CASHIER
--- NOTE | 2018-10-11 07:17 | NUR ---
OT NOTE Pt was seen this A.M. 1:1 for 17 minute OT session with TOMOGRAPHY TECHNOLOGIST and nursing staff present for observation only. Upon arrival pt was supine in bed, pt identified by name and on wristband. Pt transferred supine to sit EOB with modA X 2. While sitting EOB donned pants with maxA. Pt completed sit to stand transfer from bed level with modA X 2. Pt was taken out into the hallway in the remy chair. Sit to stand completed with modA X 2 followed by challenging pt's dynamic standing tolerance needed for increased I in self care tasks and functional transfers. Pt was able to tolerate aprox 3 minutes at a time before sitting due to fatigue. Pt was left sitting upright in remy chair in dining room with body alarm on for safety and under U staff supervision. Continue with rec D/C plan to return to LTC. MARYELLEN Neal/Akosua
[2018-10-11 07:46] VITALS: BP 131/84
--- NOTE | 2018-10-11 08:15 | NUR ---
Treatment Plan meeting with Dr. Huffman, RN, AT, SW and Brassiere Cup Mold Cutter. Plan for discharge Thursday. Pt. to return to [facility].
--- NOTE | 2018-10-11 08:54 | NUR ---
Dr. Burgos notified of wound care recommendations.
--- NOTE | 2018-10-11 09:32 | NUR ---
PHYSICAL THERAPY ADDITIONAL Nursing screen received. PAtient already being treatd in PT. Thank you. Soheila Ocasio,PT
--- NOTE | 2018-10-11 10:33 | NUR ---
ON UNIT TO ASSESS PT, UPDATE PROVIDED.
--- NOTE | 2018-10-11 10:56 | NUR ---
P: AUDITORY/VISUAL HALLUCIANTIONS-PT OBSERVED TO BE SPEAKING TO UNSEEN OTHERS AND PICKING AT THINGS IN THE AIR, CONFUSION-THINKS [facility] [place] I: PRESENT REALITY WITH EACH INTERACTION AND NEEDED R: PT CONTINUES TO RESPOND TO UNSEEN OTHERS AND PICK AT THINGS IN THE AIR, UNRECPETIVE TO PRESENTATION OF REALITY P: CONTINUE TO PRESENT REALITY WITH EACH INTERACTION AND NEEDED, MONITOR PT BEHAVIORS ON Q15 [place] SAEFT[place] CHECKS PT ALERT TO PERSON ONLY. PT MED COMPLIANT WITHOUT DIFFICULTY. PT DENIES ANY SUICIDAL THOUGHTS. PT UP TO GERICHAIR D/T INABILITY TO AMBULATE INDEPENDENTLY AND LACK OF SAFETY AWARENESS. PT INCONTINENT OF BOWEL AND BLADDER.
--- NOTE | 2018-10-11 11:38 | NUR ---
Updates faxed to [facility] Attn: Nivia. Left Voice Message for Nivia to notify of plans to discharge Thursday.
--- NOTE | 2018-10-11 11:46 | NUR ---
AM GROUP/EXERCISE AND BIRDHOUSES PT WAS PRESENT FOR GROUP AND PARTICIPATED BY SORTING BUTTONS THE ENTIRE TIME. PT EXHIBITED NO AGITATION OR YELLING OUT DURING GROUP.
--- NOTE | 2018-10-11 15:36 | NUR ---
PM GROUP/MUSIC/LEISURE SKILLS PT ATTENDED AND PARTICIPATED TO BEST OF PT ABILITY. PT DID NOT BECOME AGITATED AT THIS TIME BUT DID STATE "I'M 89 YEARS OLD AND I HAVE BEEN HERE FOR A LONG TIME" PT WILL CONTINUE TO ATTEND AND PARTICIPATE IN FUTURE GROUP SESSIONS TO THE BEST OF ABILITY.
[2018-10-11 20:00] VITALS: BP 127/68
--- NOTE | 2018-10-11 20:15 | NUR ---
24 HR chart check completed.
--- NOTE | 2018-10-11 21:15 | NUR ---
ALERT TO PERSON WITH CONFUSION NOTED. MEDICATION COMPLIANT WITHOUT DIFFICULTY. UNABLE TO PROVIDE EDUCATION DUE TO COGNITIVE IMPAIRMENT. STABLE MOOD. NO HALLUCINATIONS OR DELUSIONS NTOED. NO SI/HI NOTED. PT INTERACTIVE WITH STAFF AND PATIENTS. LAUGHING AND JOKING. Q15 MINUTE SAFETY CHECKS MAINTAINED. SEE [facility] FLOWSHEET FOR SPECIFIC MONITORING. INCONTINENCE CARE PROVIDED.
--- NOTE | 2018-10-12 05:46 | NUR ---
PT SLEPT APPROXIAMTLEY 4 HOURS INTERMITTENTLY. Q15 MINUTE SAFETY CHECKS MAINTAINED.
--- NOTE | 2018-10-12 06:09 | NUR ---
PT HAD A TOTAL OF 3 LARGE EMESIS THIS SHIFT. CALL TO DR CRISTINE JANE WITH A NEW ORDER FOR ZOFRAN 4MG SL Q6HRS PRN. VS TEMP 99.4, SPO2 93%RA, HR 95, BP 152/63, RESP 16.
[2018-10-12 06:11] VITALS: BP 152/63
[2018-10-12 07:14] VITALS: BP 136/65
--- NOTE | 2018-10-12 07:15 | NUR ---
PHYSICAL THERAPY Patient seen this am for therapy visit and was sitting up in activity room Dalia chair upon therapist arrival. OT physical laboratory assistant was present for observation only during SITE LEASING AGENT visit this morning as patient reports no new c/o's at this time. Patient was pleasant requiring only minimal instruction during gait ex to increase stride, demonstrating improved upright posture, but still several bouts of unsteady gait pattern during change of direction. Patient was WELDER FIRST CLASS/CGA, ambulating > 100' x 1 and transfers sit to stand Min/CGA. Patient returned to Dalia chair in activity room and remained upright at table awaiting breakfast with body alarm, under [facility] staff Supervision. Will continue per POC as tolerated, total treatment time 15 minutes. Omkar Latif, SITE LEASING AGENT
--- NOTE | 2018-10-12 07:20 | NUR ---
OT NOTE Pt was seen this A.M. 1:1 for 20 minute OT session with VISUAL INSPECTOR and nursing present for observation only. Upon arrival pt was sitting upright in remy chair in dining room. Pt identified by name and and had no complaints at this time. Pt was taken into the bedroom where she completed functional mobility into the bathroom with Lefty SANDERS. There she stood sink side with CGA for safety while washing her hands and completing hair care. Pt required one verbal prompt to correct her posture at the sink and followed through with good carry over. Pt was able to tolerate aprox 5 minutes of sink side grooming before sitting due to fatigue. Functional mobility completed back to her remy chair with Lefty SANDERS and occasional R lateral lean that required verbal prompts to correct. Pt was left sitting upright in remy chair in the dining room under U staff supervision with body alarm on for safety. Continue with rec D/C plan to return to LTC. MARYELLEN Neal/Akosua
--- NOTE | 2018-10-12 08:15 | NUR ---
Treatment Plan meeting with Dr. Huffman, RN, AT, SW and Global Safety Officer. Plan for discharge tommorow. Pt. to return to [facility] [place].
--- NOTE | 2018-10-12 08:39 | NUR ---
PT AWAKE, ALERT, CONVERSING WITH STAFF, ON UNIT, UPDATE GIVEN.
--- NOTE | 2018-10-12 11:00 | NUR ---
P: CONFUSION, POOR ST/LT MEMORY RECALL, EVIDENCE OF VISUAL HALLUCINATIONS NOTED. I: ORIENTATION, MOOD AND BEHAVIOR ASSESSED. ASSESSED PT FOR SI/HI, INTENT OR PLAN. ASSESSED PT FOR S/S HALLUCINATIONS, PARANOIA AND/OR DELUSIONS. MEDICATIONS ADMINISTERED PER PHYSICIAN'S ORDERS. ASSISTANCE WITH ADL CARE PROVIDED NEEDED BY STAFF ASSIST X1. PT SHOWERED THIS AM WITH ASSIST OF MILIEU STAFF X1. ENCOURAGED PT TO ATTEND AND PARTICIPATE IN BRAY MILIEU GROUPS AND ACTIVITIES. R: PT IS ALERT AND ORIENTED TO SELF ONLY, CONFUSED IN ALL OTHER AREAS. WHEN THIS NURSE ATTEMPTED TO QUESTION PT ON PLACE, TIME AND SITUATION PT STATES "I'M JUST HERE. I DON'T KNOW. IT'S A BIG BUILDING". ST/LT MEMORY DEFICITS NOTED. RESPS EASY AND EVEN ON ROOM AIR. MOOD IS STABLE THIS MORNING, AFFECT IS APPROPRIATE. SPEECH IS WNL AND COHERENT, ABLE TO MAKE NEEDS KNOWN WITHOUT DIFFICULTY. PT DENIES SI/HI, INTENT OR PLAN. PT DENIES HALLUCINATIONS, HOWEVER STAFF HAS OBSERVED EVIDENCE OF VISUAL HALLUCINATIONS PT HAS BECOME PREOCCUPIED WITH PICKING UP "BIG SILVER COINS" ON THE GROUND. PT REFUSES TO ACCEPT REALITY WHEN PRESENTED THAT THERE ARE NO COINS ON THE GROUND. PT IS MEDICATION COMPLIANT WITHOUT DIFFICULTY. PT COOPERATIVE WITH HANDS ON CARE. P: PLAN TO CONTINUE CURRENT TREATMENT, CONTINUE TO MONITOR MOOD AND BEHAVIORS, PROVIDE APPROPRIATE REORIENTATION, REDIRECTION AND 1:1 NEEDED. CONTINUE TO ENCOURAGE MEDICATION COMPLIANCE WELL GROUP ATTENDANCE AND PARTICIPATION.
--- NOTE | 2018-10-12 13:53 | NUR ---
RECIEVED PHONE CALL FROM PT'S DAUGHTER GEN, ALL QUESTIONS ANSWERED, GEN ALSO SPOKE TO FORENSIC ECONOMIST REGARDING TRANSPORTATION ARRANGEMENTS FOR DISCHARGE PENDING FOR TOMORROW.
--- NOTE | 2018-10-12 18:48 | NUR ---
SHIFT CHART CHECK COMPLETED.
[2018-10-12 20:41] VITALS: BP 139/59
--- NOTE | 2018-10-13 05:40 | NUR ---
ALERT TO PERSON WITH CONFUSION NOTED. MEDICATION COMPLIANT WITHOUT DIFFICULTY. UNABLE TO PROVIDE EDUCATION DUE TO COGNITIVE IMPAIRMENT. STABLE MOOD. NO HALLUCINATIONS OR DELUSIONS NTOED. NO SI/HI NOTED. PT INTERACTIVE WITH STAFF AND PATIENTS. Q15 MINUTE SAFETY CHECKS MAINTAINED. SEE [facility] FLOWSHEET FOR SPECIFIC MONITORING. INCONTINENCE CARE PROVIDED.
--- NOTE | 2018-10-13 05:41 | NUR ---
24 HR chart check completed.
--- NOTE | 2018-10-13 06:42 | NUR ---
PT SLEPT APPROXIMATELY 8 HOURS THIS SHIFT. Q15 MINUTE SAFETY CHECKS MAINTAINED.
--- NOTE | 2018-10-13 07:05 | NUR ---
PHYSICAL THERAPY Patient seen this am for therapy visit and was sitting upright in activity room Dalia chair at table upon therapist arrival. Several [facility] staff members were present this morning as observation only during MEDICAL ARTIST treatment. Patient was alert, pleasant and talkative this session, transfering sit to stand with Min A. Patient ambulates CODING AUDITOR/CGA, 50'x 2, demonstrating smoother gait pattern as compared to yesterday, however still needs v/c to focus on task while standing to improve overall safety awareness. Patient still fatigues quickly, needing a brief seated rest between gait trials and returned to Dalia chair in activity room following ex. Patient remained upright in chair at table with body alarm, under [facility] staff Supervision awaiting breakfast. Will continue per POC as tolerated, total treatment time 16 minutes. Omkar Latif, MEDICAL ARTIST
[2018-10-13 07:16] VITALS: BP 135/67
--- NOTE | 2018-10-13 07:23 | NUR ---
OT NOTE Pt was seen this A.M. 1:1 for 23 minute OT session with ACCOUNTS PAYABLE MANAGER and nursing staff present for observation only. Upon arrival pt was sitting upright in remy chair in the dining room. Pt identified by name and and had no complaints at this time. Pt was taken to her bedroom where she completed functional mobility into the bathroom with Lefty TREE WORKER. There she transferred on to standard commode with CGA. Pt doffed pants with Lefty and donned new pants with Lefty while standing, throughout pt had two LOB that occured forwards while reaching down for her pants that was corrected with modA. Educated pt on technique of pulling pants up to her knees while seated and holding on to them then pulling up from that height while standing to avoid reaching so far. Pt had fair carry over. Pt transferred off standard commode with CGA and use of grab bar. Pt then stood sink side while washing her hands and completing hair care with CGA. Pt had one LOB that occured forwards and one that occured backwards while reaching overhead, both were able to be corrected with Lefty. Extra time given throughout entire session due to slow rate of performance. Pt returned to the remy chair where she was left sitting upright in dining room under [facility] staff supervision with body alarm on for safety. Continue with rec D/C plan to return to LTC. MARYELLEN Neal/Akosua
[2018-10-13] MEDS ORDERED: LANTUS SOL100 UNIT/1 SC (07:56)
[2018-10-13] MEDS ORDERED: PERCOCET 5-3251 EACH PO (07:56)
--- NOTE | 2018-10-13 07:58 | NUR ---
ON UNIT TO SEE PT AT THIS TIME, MADE AWARE OF DISCHARGE FOR TODAY BACK TO NURSING FACILITY.
[2018-10-13] MEDS ORDERED: NEUDEXT PO (09:12)
[2018-10-13] MEDS ORDERED: MEMANTINE HCL10 MG PO (09:12)
[2018-10-13] MEDS ORDERED: DIVALPROEX SOD125 M1 PO (09:12)
[2018-10-13] MEDS ORDERED: EXELON13.3 MG/21 T (09:12)
[2018-10-13] MEDS ORDERED: LACTULOSE20 GM/30 M PO (09:12)
[2018-10-13] MEDS ORDERED: QUETIAPINE FUMA25 MG PO (09:12)
[2018-10-13] MEDS ORDERED: MIRTAZAPINE15 M2 PO (09:12)
--- NOTE | 2018-10-13 11:36 | NUR ---
AM GROUP/REMINISCING PT ATTENDED AND PARTICIPATED IN GROUP BY LOOKING THROUGH A MAGAZINE AND ENGAGING IN GROUP DISCUSSION ON CHILDHOOD PETS. PT EXHIBITED NO CONFUSION, AGITATION OR YELLING OUT DURING GROUP. PT WILL BE DISCHARGED FROM THE UNIT TODAY.
--- NOTE | 2018-10-13 13:34 | NUR ---
PATIENT INCREASINGLY MORE AGITATED AND VERBALLY/PHYSICALLY AGGRESSIVE WITH STAFF. PT STRIKING OUT AT STAFF AND ATTEMPTING TO HIT, KICK, AND BITE. UNABLE TO REDIRECT OR REORIENT. ALL ATTEMPTS AT CALMING, DESTIMULATION, AND DISTRACTION HAVE BEEN INEFFECTIVE. PT SCREAMING AND BEATING FISTS ON TABLE. CALLED AND UPDATED ON PT STATUS. T.O. RECEIVED FOR VISTARIL 25MG IM NOW. ORDERS CARRIED OUT AND VISTARIL ADMINISTERED AT THIS TIME TO RIGHT DELTOID. WILL CONTINUE TO MONITOR FOR EFFECTIVENESS.
--- NOTE | 2018-10-13 13:58 | NUR ---
VISTARIL EFFECTIVE IN CALMING PT. PT NO LONGER ATTEMPTING TO STRIKE OUT AT STAFF.
--- NOTE | 2018-10-13 14:00 | NUR ---
NURSE TO NURSE REPORT GIVEN TO [place] AT [facility]. DISCHARGE ORDERS FAXED TO FACILITY ([phone]) PER REQUEST.
--- NOTE | 2018-10-13 14:03 | NUR ---
PT DISCHARGED AT THIS TIME BACK TO [facility] WITH 2 DIRECTOR OF EDUCATION AND TRAINING. ALL DISCHARGE INSTRUCTIONS WERE PROVIDED FOR FACILITY AND SENT WITH THE PT INCLUDING PRESCRIPTION. ALL PT'S PERSONAL BELONGINGS WERE SENT WITH THE PT. PT LEFT THE UNIT IN STABLE CONDITION AT 1403.
--- NOTE | 2018-10-13 14:10 | NUR ---
Spoke with Patient Daughter and notified of discharge today.
--- NOTE | 2018-10-13 15:56 | NUR ---
PHYSICAL THERAPY CO-SIGN I approve of the Phyical Therapy notes written above. BETHANY GARCIA PT
== END 2018-10-13 14:03 | disposition other institution (70) | DRG 883 ==
LOC: 3N 13:02
PROVIDERS: ADMIT Psychiatry & Neurology Psychiatry
PROC: 0HBJXZZ Excision of Left Upper Leg Skin, External Approach (ICD-10-PCS; principal; 2018-10-05)
DX: F63.81 Intermittent explosive disorder (principal); L89.323 Pressure ulcer of left buttock, stage 3; F23 Brief psychotic disorder; F33.2 Major depressive disorder, recurrent severe without psychotic features; E61.1 Iron deficiency; E11.8 Type 2 diabetes mellitus with unspecified complications; G30.9 Alzheimer's disease, unspecified; F02.80 Dementia in other diseases classified elsewhere, unspecified severity, without behavioral disturbance, psychotic disturbance, mood disturbance, and anxiety; E78.5 Hyperlipidemia, unspecified; K59.00 Constipation, unspecified; K21.9 Gastro-esophageal reflux disease without esophagitis; Z88.0 Allergy status to penicillin; Z88.2 Allergy status to sulfonamides; Z79.899 Other long term (current) drug therapy; Z79.4 Long term (current) use of insulin; Z79.1 Long term (current) use of non-steroidal anti-inflammatories (NSAID)